=== PATIENT | male | born 1950 | race Caucasian/White ===

== ENCOUNTER 2018-01-02 11:04 | Emergency (ER) | payer MEDICARE ==
[~2018-01-02] VITALS: Ht 182.9 cm; Wt 79.4 kg
[~2018-01-02 11:04] MED LIST: ASPI81CH; CARV25; XARELTO1 EACH
[2018-01-02] MEDS ORDERED: SERT100 PO (11:13)
[2018-01-02] MEDS ORDERED: METF500C PO (11:14)
[2018-01-02] MEDS ORDERED: INSULANPEN (11:14)
[2018-01-02] MEDS ORDERED: GABA300 PO (11:14)
[2018-01-02] MEDS ORDERED: ATOR20 PO (11:14)
[2018-01-02 11:27] LABS: BASOPHILS ABSOLUTE AUTO 0.09 K/mm3 (0.00-0.23); BASOPHILS PERCENT AUTO 1 % (0-2); EOSINOPHILS ABSOLUTE AUTO 0.32 K/mm3 (0.00-0.68); EOSINOPHILS PERCENT AUTO 4 % (0-6); Hematocrit 40.2 % (37.0-53.0); Hemoglobin 13.1 g/dL (13.5-17.5); IMMATURE GRAN ABSOLUTE AUTO 0.03 K/mm3 (0.00-0.10); IMMATURE GRAN PERCENT AUTO 0 % (0-1); LYMPHOCYTES ABSOLUTE AUTO 2.35 K/mm3 (0.84-5.20); LYMPHOCYTES PERCENT AUTO 27 % (21-46); MONOCYTES ABSOLUTE AUTO 0.56 K/mm3 (0.16-1.47); MONOCYTES PERCENT AUTO 6 % (4-13); Mean Corpuscular HGB 30.3 pg (26.0-34.0); Mean Corpuscular HGB Conc 32.6 g/dL (31.5-36.5); Mean Corpuscular Volume 93 fL (80-100); Mean Platelet Volume 10.1 fL (9.1-12.4); NEUTROPHILS ABSOLUTE AUTO 5.47 K/mm3 (1.96-9.15); NEUTROPHILS PERCENT AUTO 62 % (41-73); Platelet Count 213 K/mm3 (150-400); RDW Coefficient Variation 12.5 % (11.7-14.2); RDW Standard Deviation 42.8 fL (35.1-46.3); Red Blood Cell Count 4.33 M/mm3 (4.30-5.90); White Blood Cell Count 8.82 K/mm3 (4.00-11.30)
[2018-01-02 11:48] LABS: Alanine Aminotransfer (ALT/SGP 15 U/L (12-78); Albumin, Blood 2.8 g/dL (3.4-5.0); Albumin/Globulin Ratio 0.8 (0.8-1.8); Alk Phos 153 U/L (50-136); Anion Gap 7 mmol/L (6-16); Aspartate Aminotrans (AST/SGOT 12 U/L (12-37); Bilirubin, Total 0.3 mg/dL (0.1-1.0); Blood Urea Nitrogen 27 mg/dL (8-24); Bun/Creatinine Ratio 20.5 (12.0-20.0); CO2, Blood 29 mmol/L (21-32); Calcium, Blood 8.3 mg/dL (8.5-10.1); Chloride, Blood 109 mmol/L (98-108); Creatinine, Blood 1.32 mg/dL (0.60-1.20); Globulin, Blood 3.6 g/dL (2.2-4.0); Glomerular Filtration Rate 58 (60-); Glucose, Blood 146 mg/dL (70-99); Potassium, Blood 3.8 mmol/L (3.5-5.5); Sodium, Blood 145 mmol/L (136-145); Total Protein, Blood 6.4 g/dL (6.4-8.2); Troponin I <0.015 ng/mL (0.000-0.040)
== END 2018-01-02 13:38 | disposition home or self-care (01) ==
LOC: ER 11:04
PROVIDERS: Emergency Medicine
DX: R55 Syncope and collapse (principal); E11.9 Type 2 diabetes mellitus without complications; I25.2 Old myocardial infarction; Z79.899 Other long term (current) drug therapy; Z79.4 Long term (current) use of insulin; Z87.891 Personal history of nicotine dependence
CPT/HCPCS: 36415; 80053; 84484; 85025; 93005; 93010; 93225; 93226; 99283-25

== ENCOUNTER 2018-07-01 10:40 | Inpatient (IN) | payer MEDICARE ==
[~2018-07-01] VITALS: Ht 182.9 cm; Wt 82.0 kg
[~2018-07-01 10:40] MED LIST changes: +ATOR20 PO; +BASAGLAR K100 UNIT/1 SC; +GABA300 PO; +INSULANPEN; +METF500C PO; +PANT20 PO; +SERT100 PO
[2018-07-01 11:29] LABS: BASOPHILS ABSOLUTE AUTO 0.09 K/mm3 (0.00-0.23); BASOPHILS PERCENT AUTO 1 % (0-2); EOSINOPHILS ABSOLUTE AUTO 0.25 K/mm3 (0.00-0.68); EOSINOPHILS PERCENT AUTO 2 % (0-6); Hematocrit 40.7 % (37.0-53.0); IMMATURE GRAN ABSOLUTE AUTO 0.03 K/mm3 (0.00-0.10); IMMATURE GRAN PERCENT AUTO 0 % (0-1); LYMPHOCYTES ABSOLUTE AUTO 2.12 K/mm3 (0.84-5.20); LYMPHOCYTES PERCENT AUTO 19 % (21-46); MONOCYTES ABSOLUTE AUTO 0.73 K/mm3 (0.16-1.47); MONOCYTES PERCENT AUTO 7 % (4-13); Mean Corpuscular HGB 29.7 pg (26.0-34.0); Mean Corpuscular HGB Conc 31.9 g/dL (31.5-36.5); Mean Corpuscular Volume 93 fL (80-100); Mean Platelet Volume 10.3 fL (9.1-12.4); NEUTROPHILS PERCENT AUTO 71 % (41-73); Platelet Count 388 K/mm3 (150-400); RDW Coefficient Variation 12.8 % (11.7-14.2); RDW Standard Deviation 43.8 fL (35.1-46.3); Red Blood Cell Count 4.37 M/mm3 (4.30-5.90); White Blood Cell Count 10.92 K/mm3 (4.00-11.30)
[2018-07-01 11:41] LABS: Alanine Aminotransfer (ALT/SGP 21 U/L (12-78); Albumin, Blood 2.8 g/dL (3.4-5.0); Albumin/Globulin Ratio 0.6 (0.8-1.8); Alk Phos 260 U/L (50-136); Anion Gap 7 mmol/L (6-16); Aspartate Aminotrans (AST/SGOT 13 U/L (12-37); Bilirubin, Total 0.2 mg/dL (0.1-1.0); Blood Urea Nitrogen 43 mg/dL (8-24); Bun/Creatinine Ratio 38.4 (12.0-20.0); CO2, Blood 27 mmol/L (21-32); Calcium, Blood 8.7 mg/dL (8.5-10.1); Chloride, Blood 97 mmol/L (98-108); Creatinine, Blood 1.12 mg/dL (0.60-1.20); Globulin, Blood 4.8 g/dL (2.2-4.0); Glomerular Filtration Rate >60 (60-); Glucose, Blood 593 mg/dL (70-99); Potassium, Blood 4.7 mmol/L (3.5-5.5); Sodium, Blood 131 mmol/L (136-145); Total Protein, Blood 7.6 g/dL (6.4-8.2)
[2018-07-01 11:46] LABS: Base Excess Venous 1.5 mmol/L; Bicarbonate Venous 24.6 mmol/L (24.0-30.0); PCO2 Venous 49.6 mmHg (38-42); PO2 Venous 38.6 mmHg (38-42); pH Blood Venous 7.35 (7.34-7.37)
[2018-07-01 13:42] LABS: Glucose, Blood 601 mg/dL (70-99)
[2018-07-01 16:30] LABS: Source, Urine Clean Catch
[2018-07-01 16:36] LABS: Appearance, Urine Hazy (Clear); Bilirubin, Urine Neg (Neg); Blood, Urine 4+ (Neg); Color, Urine Yellow (P-Yellow); Glucose Qualitative, Urine 4+ (Neg); Ketones, Urine Neg (Neg); Leukocyte Esterase, Urine 1+ (Neg); Nitrite, Urine Neg (Neg); Protein, Urine 2+ (Neg); Urobilinogen, Urine NORM (Normal)
[2018-07-01 16:47] LABS: Squamous Epithelial Cells Mod /hpf (Few)
[2018-07-01 16:49] LABS: Bacteria Rare /hpf
[2018-07-01 18:57] LABS: International Normalized Ratio 1.07
--- NOTE | 2018-07-02 03:56 | NUR ---
SHIFT SUMMARY PT HAD FAIRLY RESTFUL SHIFT. PT HAD SOME INCREASED PAIN AND PAIN MED WAS ORDERED. PT RESPONDED WELL TO TX. PT PAIN IS LOCATED MOSTLY IN LEFT FOOT WITH SOME IN RIGHT FOOT. PT HAD NO ACUTE ISSUES NOTED. PT IS SLEEPING AND BREATHING EASY.
[2018-07-02 05:00] LABS: BASOPHILS PERCENT AUTO 1 % (0-2); EOSINOPHILS ABSOLUTE AUTO 0.36 K/mm3 (0.00-0.68); EOSINOPHILS PERCENT AUTO 4 % (0-6); Hematocrit 34.6 % (37.0-53.0); Hemoglobin 11.1 g/dL (13.5-17.5); IMMATURE GRAN ABSOLUTE AUTO 0.04 K/mm3 (0.00-0.10); IMMATURE GRAN PERCENT AUTO 0 % (0-1); LYMPHOCYTES ABSOLUTE AUTO 1.88 K/mm3 (0.84-5.20); LYMPHOCYTES PERCENT AUTO 20 % (21-46); MONOCYTES ABSOLUTE AUTO 0.59 K/mm3 (0.16-1.47); MONOCYTES PERCENT AUTO 6 % (4-13); Mean Corpuscular HGB 29.7 pg (26.0-34.0); Mean Corpuscular HGB Conc 32.1 g/dL (31.5-36.5); Mean Corpuscular Volume 93 fL (80-100); Mean Platelet Volume 10.3 fL (9.1-12.4); NEUTROPHILS ABSOLUTE AUTO 6.28 K/mm3 (1.96-9.15); NEUTROPHILS PERCENT AUTO 68 % (41-73); Platelet Count 288 K/mm3 (150-400); RDW Coefficient Variation 12.7 % (11.7-14.2); RDW Standard Deviation 42.9 fL (35.1-46.3); Red Blood Cell Count 3.74 M/mm3 (4.30-5.90); White Blood Cell Count 9.25 K/mm3 (4.00-11.30)
[2018-07-02 05:39] LABS: Anion Gap 6 mmol/L (6-16); Blood Urea Nitrogen 31 mg/dL (8-24); Bun/Creatinine Ratio 28.7 (12.0-20.0); CO2, Blood 25 mmol/L (21-32); Calcium, Blood 8.3 mg/dL (8.5-10.1); Chloride, Blood 108 mmol/L (98-108); Creatinine, Blood 1.08 mg/dL (0.60-1.20); Glomerular Filtration Rate >60 (60-); Glucose, Blood 227 mg/dL (70-99); Potassium, Blood 3.9 mmol/L (3.5-5.5); Sodium, Blood 139 mmol/L (136-145)
--- NOTE | 2018-07-02 19:24 | NUR ---
SHIFT SUMMARY: NO ACUTE CHANGES TO REPORT THIS SHIFT. PT A&O; CALM AND COOPERATIVE WITH CARE. MEDICATED FOR PAIN PER EMAR. PT ON BEDREST R/T LEFT FOOT CELLULITIS; ATTENDS IN PLACE. DR ROBERTS CONSULTED (ORTHO) THROUGH ANSWERING SERVICE. IV ABX CONTINUING. WCTM.
--- NOTE | 2018-07-02 21:49 | NUR ---
DR. ROBERTS ANSWERING SERVICE WAS CALLED FOR CONSULT BY DAY SHIFT RN. ANSWERING SERVICE INFORMED RN THAT DUE TO ISSUE BEING CELLULITIS THAT DR. ROBERTS WON'T ACCEPT. DR. SOLARES NEEDS TO BE INFORMED THAT A PODIATRY CONSULT STILL NEEDS TO BE MADE. IT IS UNKNOWN WHEN PODIATRY WILL BE AVAILABLE.
--- NOTE | 2018-07-03 04:02 | NUR ---
SHIFT SUMMARY PT HAS NOT BEEN CONSULTED BY PODIATRY OR ORTHO. PT HAD UNEVENTFUL SHIFT. PT HAD NO COMPLAINTS OF PAIN OR DISCOMFORT THIS SHIFT. PT HAS SLEPT THROUGHOUT SHIFT. NO ACUTE CHANGES OR ISSUES NOTED. PT IS SLEEPING AND BREATHING EASY. CALL LIGHT IN REACH.
--- NOTE | 2018-07-03 15:51 | NUR ---
SUMMARY PT IS A/O X3-4, GENERALLY PLAEASANT HOWEVER HAS BEEN FATIGUED, SLEEPING MUCH OF DAY. STATE CONTINUING WEAKNESS LEGS & PAIN L FOOT, STATE ABLE TO BR WT WITH FWW HOWEVER HAS DECLINED OOB OR TO CHAIR SO FAR TODAY. THIS AM HE STATED HE WAS CONTINENT OF URINE HOWEVER HAD NOT USED URINAL OR GOT UP TO BR. WHEN ASKED HE STATE INCONTINENCE, STATE INCONTINENCE DURING SLEEP, ATTENDS & BEDDING SOAKED, CHANGED. DR BRIGHT ASSESS L FOOT/TOES WOUND, STATE NO PODIATRY AVAIL 2 THIS TIME, IV ANTIBX WILL CONTINUE. WOUND CARE & DRSG PROVIDED. BLOOD SUGARS LOW 200'S, HE IS ON HIGH S/S. VSS.
[2018-07-03 20:40] LABS: Vancomycin, Trough 14.6 ug/mL (5.0-10.0)
--- NOTE | 2018-07-04 03:11 | NUR ---
SHIFT SUMMARY PT SLEEPING DURING SHIFT REPORT. ADMITTED FOR L FOOT CELLULITIS. PER SHIFT REPORT, NO PODITARY AVAILABLE AT THIS TIME. RECEIVING IV ABX PER EMAR. DRSG PLACED TO L FOOT BY DAY RN, WHICH HAS REMAINED C/D/I. PT WITH HX HTN, PVD, CAD, RI, CVA, STENTS, AND IDDM. CBG'S GREATER THAN 600 UPON ADMIT, BUT CONTINUES TO IMPROVE WITH INSULIN ADJUSTMENTS. SCROTUM BECOMING RED D/T INCONTINENCE. BARRIER CREAM APPLIED WHEN CHANGED. PT SEEMS A&O, BUT HAS BEEN INCONTINENT OF URINE. DENIED PAIN IN FOOT DURING ASSESSMENT. CALLED FOR TYLENOL FOR TIAN THIS AM. CURRENTLY RESTING QUIETLY WITH EYES CLOSED AND TV OFF. CALL LT IN REACH.
--- NOTE | 2018-07-04 15:16 | NUR ---
summary PT IS A/O X4, GENERALLY PLEASANT HOWEVER SOMEWHAT FLAT AFFECT. HE IS ABLE TO AMBULATE WITH FWW TO BR IF HE CHOOSES HOWEVER UNABLE TO CONTROL BLADDER & HAS BEEN INCONT T/O DAY. HAVE OFFERED FOR PT TO SIT UP IN CHAIR HOWEVER HE STATE CAUSES L FOOT DISCOMFORT, DECLINED TODAY. HE STATE BLE NEUROPATHY, PAIN TO L FOOT MINIMAL TODAY LONG HE IS RESTING. HAS NOT NEEDED PRN NORCO. DR BRIGHT IN THIS AM TO ASSESS L FOOT, STATE GOOD PROGRESS. CHANGE IV ANTIBX. WOUND CARE/DRSG CHANGE L FOOT PROVIDED. VSS.
--- NOTE | 2018-07-05 07:23 | NUR ---
a+o but unaware of incontinence, call light in reach, saline locked room air, dry when performed walking rounds with day shift, goal is to go home
[2018-07-05 08:24] LABS: BASOPHILS ABSOLUTE AUTO 0.08 K/mm3 (0.00-0.23); BASOPHILS PERCENT AUTO 1 % (0-2); EOSINOPHILS ABSOLUTE AUTO 0.29 K/mm3 (0.00-0.68); EOSINOPHILS PERCENT AUTO 4 % (0-6); Hematocrit 34.9 % (37.0-53.0); Hemoglobin 11.2 g/dL (13.5-17.5); IMMATURE GRAN ABSOLUTE AUTO 0.02 K/mm3 (0.00-0.10); IMMATURE GRAN PERCENT AUTO 0 % (0-1); LYMPHOCYTES ABSOLUTE AUTO 1.99 K/mm3 (0.84-5.20); LYMPHOCYTES PERCENT AUTO 25 % (21-46); MONOCYTES ABSOLUTE AUTO 0.64 K/mm3 (0.16-1.47); MONOCYTES PERCENT AUTO 8 % (4-13); Mean Corpuscular HGB 30.1 pg (26.0-34.0); Mean Corpuscular HGB Conc 32.1 g/dL (31.5-36.5); Mean Corpuscular Volume 94 fL (80-100); NEUTROPHILS ABSOLUTE AUTO 4.97 K/mm3 (1.96-9.15); NEUTROPHILS PERCENT AUTO 62 % (41-73); Platelet Count 256 K/mm3 (150-400); RDW Coefficient Variation 12.9 % (11.7-14.2); RDW Standard Deviation 44.1 fL (35.1-46.3); Red Blood Cell Count 3.72 M/mm3 (4.30-5.90); White Blood Cell Count 7.99 K/mm3 (4.00-11.30)
[2018-07-05 08:37] LABS: Anion Gap 7 mmol/L (6-16); Blood Urea Nitrogen 30 mg/dL (8-24); Bun/Creatinine Ratio 25.9 (12.0-20.0); CO2, Blood 28 mmol/L (21-32); Calcium, Blood 8.6 mg/dL (8.5-10.1); Chloride, Blood 107 mmol/L (98-108); Creatinine, Blood 1.16 mg/dL (0.60-1.20); Glomerular Filtration Rate >60 (60-); Glucose, Blood 84 mg/dL (70-99); Potassium, Blood 3.8 mmol/L (3.5-5.5); Sodium, Blood 142 mmol/L (136-145)
[2018-07-05 08:40] LABS: Creatinine, Blood 1.16 mg/dL (0.60-1.20); Vancomycin, Trough 15.5 ug/mL (5.0-10.0)
--- NOTE | 2018-07-05 18:45 | NUR ---
SHIFT SUMMARY PT ADMITTED FOR CELLULITIS OF THE LEFT FOOT. I CHANGED THE DRESSING THIS MORNING. DR. CORBIN WAS CONSULTED AND WILL PERFORM A TOE AMPUTATION IN THE MORNING. PT MUST BE NPO AT MIDNIGHT TONIGHT. PT IS PLEASANT, A&O X4. BUT NOT ABLE TO BEAR WEIGHT ON THE LEFT FOOT. PT HAS NOT COMPLAINED OF PAIN. PT IS ACHS BUT HAS NOT REQUIRED COVERAGE
--- NOTE | 2018-07-06 04:14 | NUR ---
*SHIFT SUMMARY* PATIENT IS ALERT AND ORIENTED. PATIENT HAS BEEN IN BED DURING SHIFT. PATIENT IS NON WEIGHT BEARING ON LEFT FOOT. PATIENT HAS BEEN NPO SINCE MIDNIGHT. PATIENT IS SCHEDULED FOR SURGERY THIS AM. THIS RN ASKED WHAT THE SURGERY WAS FOR, PATIENT STATES HE IS HAVING HIS MIDDLE TOE OF HIS LEFT FOOT REMOVED. PATIENT HAD PAIN THROUGHOUT THE NIGHT IN THE LEFT FOOT. MEDICATED ORDERED, SEE EMAR. CHECO NIXON. GAVE TELEPHONE ORDER TO GIVE 25 UNITS OF LANTUS AT 2100 07/05/18 INSTEAD OF 50 UNITS. NEW IV WAS STARTED AT BEGINING OF SHIFT, FOR IV IN THE LEFT FOREARM INFILTRATED. NEW 20G IV IN RIGHT HAND. PATIENT IS NOT ON TELEMETRY. CALL LIGHT WITHIN REACH. PATIENT USES CALL LIGHT APPROPRIATELY. BED LOWERED AND LOCKED.
--- NOTE | 2018-07-06 11:17 | NUR ---
TONYAG 63, SPOKE WITH DR. BRIGHT, RECIEVED ORDERS FOR D5NS IV 75 ML/HR TILL POST OP.
--- NOTE | 2018-07-06 11:44 | NUR ---
History, Chart, Medications and Allergies reviewed before start of procedure.Lungs clear T/O to Auscultation. Patient confirms NPO status and agrees with scheduled surgery. PT CBG AT 63MMHG. PT GIVIEN 1/2 AMP D50 PER PROTOCOL BY MARTY BARNARD. FAMILY AT BEDSIDE. PT BASELINE SPEECH SLURRED FROM STROKE. REPORT TO CLARE BARNARD.
--- NOTE | 2018-07-06 12:03 | NUR ---
ASSUMED CARE OF PATIENT FOR MICHAEL ENGLISH, REPORT RECEIVED. TUNNEL ELASTIC OPERATOR ZIGZAG AT BEDSIDE NOW.
--- NOTE | 2018-07-06 12:59 | NUR ---
07/06/18 1259 [facility] 10CC 0.5% BUPIVICAINE W/EPI [id number] INJECTED TO RT FOOT BY DR CORBIN
--- NOTE | 2018-07-06 13:07 | NUR ---
REPORT TO QUTIA BARNARD
--- NOTE | 2018-07-06 13:09 | NUR ---
RECEIVED REPORT FROM XAVIER BARNARD. WILL ASSUME CARE OF PT. PT IS SLEEPING AT THIS TIME
--- NOTE | 2018-07-06 18:08 | NUR ---
SHIFT SUMMARY. A&OX4, SBA TO BSC OR CHAIR. PT IS PLEASANT AND COOPERATIVE, SLIGHT SLURRED SPEECH. PT WITH L 3RD AMPUTATION THIS AFTERNOON, NO POST OP COMPLICATIONS. DRESSING C/D/I. PT DENIES NEED FOR PAIN MEDICATION. NO N/V, SOB.
--- NOTE | 2018-07-07 04:49 | NUR ---
*SHIFT SUMMARY* PATIENT IS ALERT AND ORIENTED TO SELF AND PLACE. PATIENT USES CALL LIGHT APPROPRIATELY. PATIENT IS INCONTINENT. PATIENT HAS PAIN IN LEFT FOOT. MEDICATED ORDERED, PAIN MANAGEMENT IS NOT CONTROLLED WITH WHATS ORDERED FOR PAIN MEDICATIONS. PATIENT DID NOT GET MUCH SLEEP THROUGHOUT THE NIGHT. WILL DISCUSS WITH DAYSHIFT RN ABOUT MEDICATIONS. PATIENT'S DRESSING ON LEFT FOOT IS C/D/I. BED LOCKED AND IN LOW POSITION WITH CALL LIGHT IN REACH.
--- NOTE | 2018-07-07 16:11 | NUR ---
SHIFT SUMMARY. A&OX3, SBA TO CHAIR WITH FWW. PT WITH INCREASED PAIN FROM POST OP DAY 2, GOOD RELIEF WITH CURRENT ORDERS. PHYSICAL THERAPY EVAL TODAY. PT WITH MILD SOB WITH EXERTION. NO N/V. GOOD PO INTAKE, ALTHOUGH SLEPT THROUGH LUNCH AFTER IV FENTANYL ADMINISTRATION. INCONTINENT OF URINE.
--- NOTE | 2018-07-08 07:45 | NUR ---
SHIFT SUMMARY PT IS A 68-YEAR-OLD MALE, ADMITTED FOR L FOOT CELLULITIS. PT IS A&O X 3. THE PT SLEPT WELL THROUGH MOST OF THE SHIFT, THOUGH HE WOKE FOR MEDICATIONS. WHEN WOKEN, HE DENIED ANY COMPLAINTS OF PAIN, STATING THAT HE FELT "MUCH BETTER THAN I DID THIS MORNING". HE ALSO DENIED ANY NAUSEA OR SOB. PT'S FOOT STILL IN SURGICAL DRESSING. DRESSING IS INTACT WITH NO SIGNS OF BLEED THROUGH. VITAL SIGNS STABLE. NO OTHER ACUTE CHANGES IN PT CONDITION NOTED DURING THE NIGHT.
[2018-07-08] MEDS ORDERED: BAYER CHEWABLE81 MG PO (13:12)
[2018-07-08] MEDS ORDERED: CLOP75 PO (13:15)
[2018-07-08] MEDS ORDERED: PENVK250 PO (13:16)
[2018-07-08] MEDS ORDERED: Bactrim Ds Tab1 EACH PO (13:18)
[2018-07-08] MEDS ORDERED: SACC250C PO (13:27)
[2018-07-08] MEDS ORDERED: Percocet 5-3251 EACH PO (14:04)
--- NOTE | 2018-07-08 14:32 | NUR ---
discharge DR CORBIN IN TO SEE PT, STATE OK FOR DISCHARGE HOME FROM PODIATRY STANDPOINT. DR HEMPHILL IN TO SEE PT, PROVIDE D/C HOME ORDERS. PT DOES NOT HAVE PREFERENCE FOR HOME HEALTH PROVIDER. [facility]. D/C INSTRUCT WITH EMPHASIS ON ESTABLISHING PCP & FOLLOWING UP WITH DR CORBIN PROVIDED. FOOT IS POST-OP SHOE. SCRIPTS FAXED TO [facility]/REQUEST HARD COPY PERCOCET SCRIPT TO PT. IV D/C INTACT. HIS NEFABY HELPS HIM @ HOME, BRING IN CLOTHES. DC INSTRUCT REVIEWED WITH HER. W/C ESCORT FROM [facility] PROVIDEDBY [facility] ACCOMPANIED BY [facility]. PT IS PLEASANT/APPRECIATIVE.
== END 2018-07-08 15:11 | disposition home health service (06) | DRG 256 ==
LOC: ER 10:40 → MEDS 15:09 → ER 17:13 → MEDS 17:13 → ENPENDDIS 07-08 13:29 → MEDS 07-08 15:11
PROVIDERS: Internal Medicine; Physician Assistant; Podiatrist Foot & Ankle Surgery; ADMIT Internal Medicine
PROC: 0Y6U0Z0 Detachment at Left 3rd Toe, Complete, Open Approach (ICD-10-PCS; principal; 2018-07-06 12:00)
DX: E11.52 Type 2 diabetes mellitus with diabetic peripheral angiopathy with gangrene (principal); E87.1 Hypo-osmolality and hyponatremia; I96 Gangrene, not elsewhere classified; N39.0 Urinary tract infection, site not specified; E11.628 Type 2 diabetes mellitus with other skin complications; E11.40 Type 2 diabetes mellitus with diabetic neuropathy, unspecified; E11.65 Type 2 diabetes mellitus with hyperglycemia; N28.9 Disorder of kidney and ureter, unspecified; L03.032 Cellulitis of left toe; I25.10 Atherosclerotic heart disease of native coronary artery without angina pectoris; I10 Essential (primary) hypertension; E78.5 Hyperlipidemia, unspecified; D64.9 Anemia, unspecified; R31.9 Hematuria, unspecified; D50.9 Iron deficiency anemia, unspecified; B95.2 Enterococcus as the cause of diseases classified elsewhere; B96.1 Klebsiella pneumoniae [K. pneumoniae] as the cause of diseases classified elsewhere; B96.89 Other specified bacterial agents as the cause of diseases classified elsewhere; Z96.642 Presence of left artificial hip joint; Z66 Do not resuscitate; Z95.828 Presence of other vascular implants and grafts; Z79.4 Long term (current) use of insulin; Z79.899 Other long term (current) drug therapy; I25.2 Old myocardial infarction; Z86.73 Personal history of transient ischemic attack (TIA), and cerebral infarction without residual deficits; Z87.891 Personal history of nicotine dependence; Z91.14 Patient's other noncompliance with medication regimen; Z95.5 Presence of coronary angioplasty implant and graft
CPT/HCPCS: 36415; 73630; 73700; 80048; 80053; 80202; 81001; 82565; 82607; 82728; 82746; 82803; 82947; 83540; 83550; 83605; 85025; 85610; 85651; 85730; 86140; 87040; 87070; 87077; 87086; 87186; 87205; 88305; 88311; 93005; 93010; 93926; 96365; 96366; 97110; 97162; 97530; 99285-25; J0690; J0696; J1650; J1815; J2250; J2405; J2765; J3010; J3370; J7050; J7120

== ENCOUNTER 2018-11-20 19:44 | Inpatient (IN) | payer MEDICARE ==
[~2018-11-20] VITALS: Ht 182.9 cm; Wt 81.5 kg
[~2018-11-20 19:44] MED LIST changes: +BAYER CHEWABLE81 MG PO; +Bactrim Ds Tab1 EACH PO; +CLOP75 PO; +PENVK250 PO; +Percocet 5-3251 EACH PO; +SACC250C PO
[2018-11-20 20:34] LABS: BASOPHILS ABSOLUTE AUTO 0.07 K/mm3 (0.00-0.23); BASOPHILS PERCENT AUTO 0 % (0-2); EOSINOPHILS ABSOLUTE AUTO 0.04 K/mm3 (0.00-0.68); EOSINOPHILS PERCENT AUTO 0 % (0-6); Hematocrit 42.6 % (37.0-53.0); Hemoglobin 13.9 g/dL (13.5-17.5); IMMATURE GRAN PERCENT AUTO 1 % (0-1); LYMPHOCYTES PERCENT AUTO 5 % (21-46); MONOCYTES ABSOLUTE AUTO 1.06 K/mm3 (0.16-1.47); MONOCYTES PERCENT AUTO 6 % (4-13); Mean Corpuscular HGB 29.5 pg (26.0-34.0); Mean Corpuscular HGB Conc 32.6 g/dL (31.5-36.5); Mean Corpuscular Volume 90 fL (80-100); Mean Platelet Volume 10.4 fL (9.1-12.4); NEUTROPHILS ABSOLUTE AUTO 15.15 K/mm3 (1.96-9.15); NEUTROPHILS PERCENT AUTO 88 % (41-73); Platelet Count 215 K/mm3 (150-400); RDW Coefficient Variation 12.6 % (11.7-14.2); RDW Standard Deviation 41.5 fL (35.1-46.3); Red Blood Cell Count 4.71 M/mm3 (4.30-5.90); White Blood Cell Count 17.32 K/mm3 (4.00-11.30)
[2018-11-20 20:59] LABS: Alanine Aminotransfer (ALT/SGP 20 U/L (12-78); Albumin, Blood 2.7 g/dL (3.4-5.0); Albumin/Globulin Ratio 0.7 (0.8-1.8); Alk Phos 155 U/L (50-136); Anion Gap 10 mmol/L (6-16); Aspartate Aminotrans (AST/SGOT 17 U/L (12-37); Bilirubin, Total 0.5 mg/dL (0.1-1.0); Blood Urea Nitrogen 32 mg/dL (8-24); Bun/Creatinine Ratio 26.7 (12.0-20.0); CO2, Blood 20 mmol/L (21-32); Calcium, Blood 8.2 mg/dL (8.5-10.1); Chloride, Blood 109 mmol/L (98-108); Globulin, Blood 3.7 g/dL (2.2-4.0); Glomerular Filtration Rate >60 (60-); Glucose, Blood 269 mg/dL (70-99); Magnesium, Blood 1.4 mg/dL (1.6-2.4); Potassium, Blood 4.5 mmol/L (3.5-5.5); Sodium, Blood 139 mmol/L (136-145); Total Protein, Blood 6.4 g/dL (6.4-8.2); Troponin I <0.015 ng/mL (0.000-0.040)
[2018-11-20 21:02] LABS: Thyroid Stimulating Hormone 0.839 uIU/mL (0.360-4.800)
[2018-11-20 23:11] LABS: Source, Urine Clean Catch
[2018-11-20 23:16] LABS: Bilirubin, Urine Neg (Neg); Blood, Urine 5+ (Neg); Glucose Qualitative, Urine 3+ (Neg); Ketones, Urine 2+ (Neg); Leukocyte Esterase, Urine 3+ (Neg); Nitrite, Urine Pos (Neg); Protein, Urine 4+ (Neg); Specific Gravity, Urine 1.015 (1.003-1.022); Urobilinogen, Urine NORM (Normal)
[2018-11-20 23:18] LABS: Appearance, Urine Cloudy (Clear); Color, Urine Yellow (P-Yellow)
[2018-11-20 23:26] LABS: Amorphous Light ({null, 0-Heavy}); Bacteria Mod /hpf; Red Blood Cells, Urine TNTC /hpf (0-2); Squamous Epithelial Cells Not Seen /hpf (Few); White Blood Cells, Urine TNTC /hpf (0-5)
[2018-11-21 05:44] LABS: BASOPHILS ABSOLUTE AUTO 0.05 K/mm3 (0.00-0.23); BASOPHILS PERCENT AUTO 0 % (0-2); EOSINOPHILS ABSOLUTE AUTO 0.02 K/mm3 (0.00-0.68); EOSINOPHILS PERCENT AUTO 0 % (0-6); Hematocrit 41.3 % (37.0-53.0); Hemoglobin 13.4 g/dL (13.5-17.5); IMMATURE GRAN PERCENT AUTO 1 % (0-1); LYMPHOCYTES PERCENT AUTO 9 % (21-46); MONOCYTES ABSOLUTE AUTO 1.12 K/mm3 (0.16-1.47); MONOCYTES PERCENT AUTO 7 % (4-13); Mean Corpuscular HGB 29.6 pg (26.0-34.0); Mean Corpuscular HGB Conc 32.4 g/dL (31.5-36.5); Mean Corpuscular Volume 91 fL (80-100); Mean Platelet Volume 10.5 fL (9.1-12.4); NEUTROPHILS ABSOLUTE AUTO 12.47 K/mm3 (1.96-9.15); NEUTROPHILS PERCENT AUTO 83 % (41-73); Platelet Count 202 K/mm3 (150-400); RDW Coefficient Variation 12.9 % (11.7-14.2); RDW Standard Deviation 43.3 fL (35.1-46.3); Red Blood Cell Count 4.52 M/mm3 (4.30-5.90); White Blood Cell Count 15.06 K/mm3 (4.00-11.30)
--- NOTE | 2018-11-21 06:44 | NUR ---
SHIFT SUMMARY PATIENT IS ALERT AND CONFUSED. CAME TO ROOM VIA STRETCHER. ON ROOM AIR. PATIENT SEEMS MILDLY CONFUSED. UNSURE OF MEDICATIONS, AND HEALTH HISTORY. PATIENT STATES HE LIVES AT HOME WITH HIS NEICE AND NEPHEW. HE STATES HE FEELS VERY WEAK. PT IS INCONTINENT. HAS A PRESSURE ULCER ON LEFT HIP. NEED TO GET MEDICATION LIST FROM PATIENTS PHARMACY TODAY, HE [facility] BUT IS UNSURE WHICH ONE HERE. WILL PASS ALONG TO DAYSHIFT RN. VITALS STABLE.
[2018-11-21 08:38] LABS: Albumin, Blood 2.7 g/dL (3.4-5.0); Albumin/Globulin Ratio 0.7 (0.8-1.8); Bilirubin, Total 0.5 mg/dL (0.1-1.0); Bun/Creatinine Ratio 25.9 (12.0-20.0); Calcium, Blood 8.4 mg/dL (8.5-10.1); Creatinine, Blood 1.43 mg/dL (0.60-1.20); Globulin, Blood 3.7 g/dL (2.2-4.0); Potassium, Blood 4.3 mmol/L (3.5-5.5); Total Protein, Blood 6.4 g/dL (6.4-8.2)
--- NOTE | 2018-11-21 16:50 | NUR ---
HE IS SLEEPING LIGHTLY. NO COMPLAINTS TODAY. HIGH SS STARTED THIS AFTERNOON. RECEIVED FAXES FROM [facility] AND [facility]. WILL DO MED REC.
[2018-11-21] MEDS ORDERED: LIRA0.6P SC (16:55)
[2018-11-21] MEDS ORDERED: Glucophage Xr750 MG PO (16:57)
[2018-11-21] MEDS ORDERED: SERT100 PO (17:00)
[2018-11-21] MEDS ORDERED: Aspirin EC81 MG PO (17:02)
[2018-11-21] MEDS ORDERED: METO25 PO (17:03)
[2018-11-21] MEDS ORDERED: DOCU100 PO (17:17)
--- NOTE | 2018-11-21 18:58 | NUR ---
NO CHANGES. HE SAT UP AND AMBULATED IN ROOM TODAY. NO TREATABLE FEVER TODAY. SS INSULIN STARTED. MED REC DONE. NOTIFIED. IVF'S SLOWED TO 100MLS/HR EARLY THIS AFTERNOON.
[2018-11-22 05:12] LABS: BASOPHILS ABSOLUTE AUTO 0.06 K/mm3 (0.00-0.23); BASOPHILS PERCENT AUTO 1 % (0-2); EOSINOPHILS ABSOLUTE AUTO 0.21 K/mm3 (0.00-0.68); EOSINOPHILS PERCENT AUTO 2 % (0-6); Hematocrit 37.1 % (37.0-53.0); Hemoglobin 11.9 g/dL (13.5-17.5); IMMATURE GRAN ABSOLUTE AUTO 0.07 K/mm3 (0.00-0.10); IMMATURE GRAN PERCENT AUTO 1 % (0-1); LYMPHOCYTES ABSOLUTE AUTO 1.83 K/mm3 (0.84-5.20); LYMPHOCYTES PERCENT AUTO 15 % (21-46); MONOCYTES ABSOLUTE AUTO 0.69 K/mm3 (0.16-1.47); MONOCYTES PERCENT AUTO 6 % (4-13); Mean Corpuscular HGB Conc 32.1 g/dL (31.5-36.5); Mean Corpuscular Volume 90 fL (80-100); Mean Platelet Volume 10.6 fL (9.1-12.4); NEUTROPHILS ABSOLUTE AUTO 9.38 K/mm3 (1.96-9.15); NEUTROPHILS PERCENT AUTO 77 % (41-73); Platelet Count 168 K/mm3 (150-400); RDW Standard Deviation 42.7 fL (35.1-46.3); Red Blood Cell Count 4.11 M/mm3 (4.30-5.90); White Blood Cell Count 12.24 K/mm3 (4.00-11.30)
[2018-11-22 05:32] LABS: Albumin, Blood 2.4 g/dL (3.4-5.0); Anion Gap 7 mmol/L (6-16); Blood Urea Nitrogen 25 mg/dL (8-24); Bun/Creatinine Ratio 21.7 (12.0-20.0); CO2, Blood 25 mmol/L (21-32); Chloride, Blood 109 mmol/L (98-108); Creatinine, Blood 1.15 mg/dL (0.60-1.20); Glomerular Filtration Rate >60 (60-); Glucose, Blood 145 mg/dL (70-99); Phosphorus, Blood 1.9 mg/dL (2.5-4.9); Potassium, Blood 3.7 mmol/L (3.5-5.5); Sodium, Blood 141 mmol/L (136-145)
--- NOTE | 2018-11-22 07:34 | NUR ---
SHIFT SUMMARY PATIENT IS ALERT AND CONFUSED AT TIMES. PATIENT IS INCONTINENT. DENIES PAIN OR SOB. PATIENT USES CALL LIGHT AT TIMES. NO NEW CHANGES THROUGHOUT THE NIGHT. VITALS STABLE.
[2018-11-23 05:02] LABS: BASOPHILS ABSOLUTE AUTO 0.06 K/mm3 (0.00-0.23); BASOPHILS PERCENT AUTO 1 % (0-2); EOSINOPHILS ABSOLUTE AUTO 0.26 K/mm3 (0.00-0.68); EOSINOPHILS PERCENT AUTO 3 % (0-6); IMMATURE GRAN ABSOLUTE AUTO 0.02 K/mm3 (0.00-0.10); IMMATURE GRAN PERCENT AUTO 0 % (0-1); LYMPHOCYTES ABSOLUTE AUTO 1.52 K/mm3 (0.84-5.20); LYMPHOCYTES PERCENT AUTO 18 % (21-46); MONOCYTES ABSOLUTE AUTO 0.55 K/mm3 (0.16-1.47); MONOCYTES PERCENT AUTO 7 % (4-13); Mean Corpuscular HGB 29.3 pg (26.0-34.0); Mean Corpuscular HGB Conc 32.4 g/dL (31.5-36.5); Mean Corpuscular Volume 90 fL (80-100); Mean Platelet Volume 10.4 fL (9.1-12.4); NEUTROPHILS ABSOLUTE AUTO 5.91 K/mm3 (1.96-9.15); NEUTROPHILS PERCENT AUTO 71 % (41-73); Platelet Count 168 K/mm3 (150-400); RDW Coefficient Variation 12.4 % (11.7-14.2); RDW Standard Deviation 41.4 fL (35.1-46.3); White Blood Cell Count 8.32 K/mm3 (4.00-11.30)
[2018-11-23 05:31] LABS: Albumin, Blood 2.4 g/dL (3.4-5.0); Anion Gap 7 mmol/L (6-16); Blood Urea Nitrogen 27 mg/dL (8-24); Bun/Creatinine Ratio 23.5 (12.0-20.0); CO2, Blood 26 mmol/L (21-32); Calcium, Blood 8.4 mg/dL (8.5-10.1); Chloride, Blood 107 mmol/L (98-108); Creatinine, Blood 1.15 mg/dL (0.60-1.20); Glomerular Filtration Rate >60 (60-); Glucose, Blood 151 mg/dL (70-99); Phosphorus, Blood 2.3 mg/dL (2.5-4.9); Potassium, Blood 3.6 mmol/L (3.5-5.5); Sodium, Blood 140 mmol/L (136-145)
--- NOTE | 2018-11-23 08:05 | NUR ---
SHIFT SUMMARY: 68 Y/O MALE RESTED COMFORTABLY ALL EVENING WITH NO PAIN OR NAUSEA VOICED. PTS LEFT HIP MEPLEX DRESSING DRY AND INTACT. PT ALERT AND ORIENTED X 2, ABLE TO FOLLOW SIMPLE VERBAL COMMANDS. PTS BED ALARM APPLIED, BED LOW POSITION, CALL LIGHT AT SIDE. PT VOICED THAT HE LIVES IN MOBILE HOME WITH HIS NIECE AND NEPHEW.
[2018-11-23] MEDS ORDERED: Florastor250 MG PO (10:27)
[2018-11-23] MEDS ORDERED: LEVOFLOXACIN750 MG PO (10:27)
[2018-11-23] MEDS ORDERED: CLOP75 PO (10:27)
--- NOTE | 2018-11-23 13:31 | NUR ---
PATIENT DISCHARGE: PATIENT DISCHARGED TO HOME c HOME HEALTH THIS SHIFT. MEDICATION RECONCILIATION COMPLETED; MED LIST FAXED TO [facility]. DISCHARGE EDUCATION COMPLETED WITH PATIENT AND FAMILY. PATIENT TRANSPORTED TO EXIT BY [facility] STAFF WITH WHEELCHAIR AT 1325. PATIENT DEPARTED [facility] VIA PRIVATE AUTO.
== END 2018-11-23 13:23 | disposition home health service (06) | DRG 872 ==
LOC: ER 19:44 → MEDS 19:45 → ER 11-21 01:00 → MEDS 11-21 01:00 → ENPENDDIS 11-23 09:45 → MEDS 11-23 13:23
PROVIDERS: Emergency Medicine; Family Medicine; ADMIT Hospitalist
DX: A41.9 Sepsis, unspecified organism (principal); N39.0 Urinary tract infection, site not specified; L89.222 Pressure ulcer of left hip, stage 2; E11.65 Type 2 diabetes mellitus with hyperglycemia; I25.10 Atherosclerotic heart disease of native coronary artery without angina pectoris; Z86.73 Personal history of transient ischemic attack (TIA), and cerebral infarction without residual deficits; I10 Essential (primary) hypertension; E78.5 Hyperlipidemia, unspecified; B96.1 Klebsiella pneumoniae [K. pneumoniae] as the cause of diseases classified elsewhere; E11.42 Type 2 diabetes mellitus with diabetic polyneuropathy; E11.59 Type 2 diabetes mellitus with other circulatory complications; E83.39 Other disorders of phosphorus metabolism; E83.42 Hypomagnesemia; Z66 Do not resuscitate; Z79.4 Long term (current) use of insulin; Z95.5 Presence of coronary angioplasty implant and graft; Z87.891 Personal history of nicotine dependence; D64.9 Anemia, unspecified
CPT/HCPCS: 36415; 71046; 80053; 80069; 81001; 82947; 83605; 83735; 84443; 84484; 85025; 87077; 87086; 87186; 93005; 93010; 96361; 96365; 96366; 97162; 97530; 99285-25; J0696; J1650; J1815; J7030

== ENCOUNTER → 2018-12-27 | Outpatient (CLI) | payer MEDICARE ==
[~2018-12-27] MED LIST changes: +Aspirin EC81 MG PO; +BACL10 PO; +DOCU100 PO; +DULO60 PO; +Florastor250 MG PO; +Glucophage Xr750 MG PO; +LEVE500 PO; +LEVOFLOXACIN750 MG PO; +LIRA0.6P SC; +METO25 PO; +MONT10T PO; +TRAZ100 PO
[2018-12-27 15:57] LABS: Bilirubin, Urine Neg (Neg); Blood, Urine Neg (Neg); Glucose Qualitative, Urine 4+ (Neg); Ketones, Urine Neg (Neg); Leukocyte Esterase, Urine 1+ (Neg); Nitrite, Urine Neg (Neg); Protein, Urine 2+ (Neg); Specific Gravity, Urine 1.015 (1.003-1.022); Urobilinogen, Urine NORM (Normal)
[2018-12-27 16:03] LABS: Appearance, Urine Clear (Clear); Color, Urine Yellow (P-Yellow)
[2018-12-27 16:13] LABS: Bacteria Few /hpf; Squamous Epithelial Cells Few /hpf (Few); Yeast/Fungi Urine Few /hpf
== END | disposition home or self-care (01) ==
LOC: LAB 15:06 → LAB SHORT 15:06
PROVIDERS: Family Medicine
DX: E11.65 Type 2 diabetes mellitus with hyperglycemia (principal); E83.42 Hypomagnesemia; N39.0 Urinary tract infection, site not specified
CPT/HCPCS: 81001; 87077; 87086; 87186

== ENCOUNTER 2019-01-02 12:35 | Emergency (ER) | payer MEDICARE ==
[~2019-01-02] VITALS: Ht 182.9 cm; Wt 81.7 kg
[~2019-01-02 12:35] MED LIST changes: -BACL10 PO; -DULO60 PO; -LEVE500 PO; -MONT10T PO; -TRAZ100 PO
[2019-01-02 13:38] LABS: BASOPHILS ABSOLUTE AUTO 0.05 K/mm3 (0.00-0.23); BASOPHILS PERCENT AUTO 1 % (0-2); EOSINOPHILS ABSOLUTE AUTO 0.16 K/mm3 (0.00-0.68); EOSINOPHILS PERCENT AUTO 3 % (0-6); Hematocrit 43.2 % (37.0-53.0); Hemoglobin 13.8 g/dL (13.5-17.5); IMMATURE GRAN ABSOLUTE AUTO 0.02 K/mm3 (0.00-0.10); IMMATURE GRAN PERCENT AUTO 0 % (0-1); LYMPHOCYTES ABSOLUTE AUTO 1.49 K/mm3 (0.84-5.20); LYMPHOCYTES PERCENT AUTO 24 % (21-46); MONOCYTES ABSOLUTE AUTO 0.62 K/mm3 (0.16-1.47); MONOCYTES PERCENT AUTO 10 % (4-13); Mean Corpuscular HGB 29.9 pg (26.0-34.0); Mean Corpuscular HGB Conc 31.9 g/dL (31.5-36.5); Mean Corpuscular Volume 94 fL (80-100); Mean Platelet Volume 10.6 fL (9.1-12.4); NEUTROPHILS PERCENT AUTO 63 % (41-73); Platelet Count 178 K/mm3 (150-400); RDW Coefficient Variation 12.9 % (11.7-14.2); RDW Standard Deviation 43.9 fL (35.1-46.3); Red Blood Cell Count 4.62 M/mm3 (4.30-5.90); White Blood Cell Count 6.24 K/mm3 (4.00-11.30)
[2019-01-02 13:52] LABS: Bun/Creatinine Ratio 25.7 (12.0-20.0); Calcium, Blood 8.8 mg/dL (8.5-10.1); Creatinine, Blood 1.44 mg/dL (0.60-1.20); Potassium, Blood 4.7 mmol/L (3.5-5.5)
[2019-01-02] MEDS ORDERED: MONT10T PO (14:41)
[2019-01-02] MEDS ORDERED: LEVE500 PO (14:41)
[2019-01-02] MEDS ORDERED: DULO60 PO (14:42)
[2019-01-02] MEDS ORDERED: TRAZ100 PO (14:42)
[2019-01-02] MEDS ORDERED: BACL10 PO (14:43)
[2019-01-02 15:03] LABS: Glucose, Blood 515 mg/dL (70-99)
--- NOTE | 2019-01-02 20:37 | NUR ---
Initial Visit: ED Palliative Care Consult for Goals of Care. Spoke with bedside nurse Lai and she reports Pt and family would benefit from palliative care visit. Lai reports Pt's nephew is not agreeable with Pt not being admitted to hospital. Visited with Pt and nephew. Pt denies any discomfort at this time. Listened as nephew expresses concerns that Pt is not being admitted. He reports Pt blood sugars have been running high. Validated concerns and suggested that family calls PCP first thing in the morning to schedule an appointment for tomorrow. Nephew is agreeable. Suggested the idea of having in home caregivers and nephew reports this idea would be decided by his Samuel. Noticed a napkin with palliative care nurse Sofía written on napkin. Nephew reports a report has been established between Pt's niece Samuel and Pt. Nephew is agreeable for palliative care nurse Sofía to F/U with phone call tomorrow. Pt and family report no other concerns at this time. Palliative Care will remain available.
--- NOTE | 2019-01-03 14:34 | NUR ---
folloow up call to family for care planning left message.
== END 2019-01-02 21:28 | disposition home or self-care (01) ==
LOC: ER 12:35
PROVIDERS: Emergency Medicine
DX: E11.65 Type 2 diabetes mellitus with hyperglycemia (principal); J02.9 Acute pharyngitis, unspecified; E86.0 Dehydration; Z79.899 Other long term (current) drug therapy; Z79.4 Long term (current) use of insulin; Z79.82 Long term (current) use of aspirin; Z86.73 Personal history of transient ischemic attack (TIA), and cerebral infarction without residual deficits; I10 Essential (primary) hypertension; E78.5 Hyperlipidemia, unspecified; Z87.891 Personal history of nicotine dependence
CPT/HCPCS: 36415; 80048; 82947; 85025; 93005; 93010; 96360; 99283-25; J1815; J7030

== ENCOUNTER 2019-12-20 16:25 | Inpatient (IN) | payer MEDICARE ==
[~2019-12-20] VITALS: Ht 182.9 cm; Wt 77.3 kg
[~2019-12-20 16:25] MED LIST changes: +BACL10 PO; +DULO60 PO; +LEVE500 PO; +MONT10T PO; +TRAZ100 PO
[2019-12-20 17:54] LABS: BASOPHILS ABSOLUTE AUTO 0.08 K/mm3 (0.00-0.23); BASOPHILS PERCENT AUTO 1 % (0-2); EOSINOPHILS PERCENT AUTO 2 % (0-6); Hematocrit 39.2 % (37.0-53.0); Hemoglobin 12.4 g/dL (13.5-17.5); IMMATURE GRAN ABSOLUTE AUTO 0.06 K/mm3 (0.00-0.10); IMMATURE GRAN PERCENT AUTO 0 % (0-1); LYMPHOCYTES ABSOLUTE AUTO 1.04 K/mm3 (0.84-5.20); LYMPHOCYTES PERCENT AUTO 7 % (21-46); MONOCYTES ABSOLUTE AUTO 0.82 K/mm3 (0.16-1.47); MONOCYTES PERCENT AUTO 5 % (4-13); Mean Corpuscular HGB 29.7 pg (26.0-34.0); Mean Corpuscular HGB Conc 31.6 g/dL (31.5-36.5); Mean Corpuscular Volume 94 fL (80-100); Mean Platelet Volume 10.3 fL (9.1-12.4); NEUTROPHILS ABSOLUTE AUTO 13.13 K/mm3 (1.96-9.15); NEUTROPHILS PERCENT AUTO 85 % (41-73); Platelet Count 324 K/mm3 (150-400); RDW Coefficient Variation 13.2 % (11.7-14.2); RDW Standard Deviation 45.3 fL (35.1-46.3); Red Blood Cell Count 4.18 M/mm3 (4.30-5.90); White Blood Cell Count 15.43 K/mm3 (4.00-11.30)
[2019-12-20 18:10] LABS: Alanine Aminotransfer (ALT/SGP 14 U/L (12-78); Albumin, Blood 2.5 g/dL (3.4-5.0); Albumin/Globulin Ratio 0.5 (0.8-1.8); Alk Phos 173 U/L (50-136); Anion Gap 8 mmol/L (6-16); Aspartate Aminotrans (AST/SGOT 11 U/L (12-37); Bilirubin, Total 0.3 mg/dL (0.1-1.0); Blood Urea Nitrogen 65 mg/dL (8-24); Bun/Creatinine Ratio 38.9 (12.0-20.0); CO2, Blood 25 mmol/L (21-32); Calcium, Blood 8.9 mg/dL (8.5-10.1); Chloride, Blood 103 mmol/L (98-108); Creatinine, Blood 1.67 mg/dL (0.60-1.20); Globulin, Blood 5.4 g/dL (2.2-4.0); Glomerular Filtration Rate 44 (60-); Glucose, Blood 351 mg/dL (70-99); Potassium, Blood 5.1 mmol/L (3.5-5.5); Sodium, Blood 136 mmol/L (136-145); Total Protein, Blood 7.9 g/dL (6.4-8.2); Troponin I <0.015 ng/mL (0.000-0.040)
[2019-12-20 20:18] LABS: Source, Urine Catheter
[2019-12-20 20:42] LABS: Appearance, Urine Turbid (Clear); Bilirubin, Urine Neg (Neg); Blood, Urine 4+ (Neg); Color, Urine Yellow (P-Yellow); Glucose Qualitative, Urine 4+ (Neg); Ketones, Urine Neg (Neg); Leukocyte Esterase, Urine 3+ (Neg); Nitrite, Urine Neg (Neg); Protein, Urine 2+ (Neg); Urobilinogen, Urine NORM (Normal)
[2019-12-20 20:49] LABS: White Blood Cells, Urine TNTC /hpf (0-5)
[2019-12-20 20:50] LABS: Amorphous Mod (0-Heavy); Bacteria Mod /hpf; Squamous Epithelial Cells Not Seen /hpf (Few)
[2019-12-20] MEDS ORDERED: METO25ER PO (21:24)
[2019-12-20] MEDS ORDERED: METFORMIN HCL500 M3 PO (21:25)
[2019-12-20] MEDS ORDERED: ATORVASTATIN CA20 MG PO (21:26)
[2019-12-20] MEDS ORDERED: BASAGLAR K100 UNIT/3 SC ×2 (21:31)
--- NOTE | 2019-12-20 23:40 | NUR ---
ASSUMED CARE RECEIVED REPORT FROM ED RN. PT TRANSPORTED TO MEDICAL FLOOR VIA GURNEY, TRANSFERRED TO HOSPITAL BED WITH ASSISTANCE OF 4. NO S/S ACUTE DISTRESS NOTED, RESPS EVEN AND UNLABORED. PT REPOSITIONED AND SETTLED INTO ROOM. ORIENTED TO UNIT AND USE OF CALL LIGHT, REMINDED PT TO CALL WITH NEEDS. CALL LIGHT, POSSESSIONS IN REACH, BED IN LOWEST POSITION WITH ALARMS ON. WILL CONTINUE TO MONITOR.
[2019-12-21 05:17] LABS: BASOPHILS ABSOLUTE AUTO 0.08 K/mm3 (0.00-0.23); BASOPHILS PERCENT AUTO 1 % (0-2); EOSINOPHILS ABSOLUTE AUTO 0.41 K/mm3 (0.00-0.68); EOSINOPHILS PERCENT AUTO 3 % (0-6); Hematocrit 33.3 % (37.0-53.0); Hemoglobin 10.3 g/dL (13.5-17.5); IMMATURE GRAN ABSOLUTE AUTO 0.04 K/mm3 (0.00-0.10); IMMATURE GRAN PERCENT AUTO 0 % (0-1); LYMPHOCYTES ABSOLUTE AUTO 1.72 K/mm3 (0.84-5.20); LYMPHOCYTES PERCENT AUTO 14 % (21-46); MONOCYTES ABSOLUTE AUTO 0.79 K/mm3 (0.16-1.47); MONOCYTES PERCENT AUTO 6 % (4-13); Mean Corpuscular HGB 28.9 pg (26.0-34.0); Mean Corpuscular HGB Conc 30.9 g/dL (31.5-36.5); Mean Corpuscular Volume 94 fL (80-100); NEUTROPHILS ABSOLUTE AUTO 9.39 K/mm3 (1.96-9.15); NEUTROPHILS PERCENT AUTO 76 % (41-73); Platelet Count 269 K/mm3 (150-400); RDW Coefficient Variation 13.2 % (11.7-14.2); RDW Standard Deviation 45.5 fL (35.1-46.3); Red Blood Cell Count 3.56 M/mm3 (4.30-5.90); White Blood Cell Count 12.43 K/mm3 (4.00-11.30)
[2019-12-21 05:31] LABS: Bun/Creatinine Ratio 38.3 (12.0-20.0); Calcium, Blood 8.1 mg/dL (8.5-10.1); Creatinine, Blood 1.49 mg/dL (0.60-1.20); Potassium, Blood 4.5 mmol/L (3.5-5.5)
--- NOTE | 2019-12-21 05:59 | NUR ---
SHIFT SUMMARY PT HAS HAD NO ACUTE EVENTS SINCE ADMISSION. SLEPT FOR MUCH OF THE NIGHT AFTER SETTLING INTO ROOM. VS STABLE. NO C/O DYSURIA. PT WAS INCONTINENT OF URINE, UNAWARE OF FACT THAT HE HAD VOIDED. PT REPOSITIONED AND KEPT COMFORTABLE T/O NIGHT. DENIES NEEDS AT THIS TIME. ROOM SERVICE FOOD SERVER SPOKE TO PT'S NEPHEW TO OBTAIN INFORMATION FOR PT ADMISSION. CALL LIGHT AND POSSESSIONS IN REACH, BED IN LOWEST POSITION WITH ALARMS ON. WILL CONTINUE TO MONITOR UNTIL DAY RN ASSUMES CARE.
--- NOTE | 2019-12-21 18:26 | NUR ---
PT HAS BEEN STABLE AND ORIENTED THIS SHIFT. PT WORKED WITH THERAPY TO STAD BUT IS OTHERWISE BEDBOUND AND REQUIRES TURNING. PT HAS EXCORIATION TO BUTTOCKS AND KATHRIN AREA. ATTENDS ON FOR INCONTINENCE. CREAM USED TO BUTTOCKS AND KATHRIN AREA NEEDED. UA SENT FOR MICRO. CONT ROCEPHIN AND IV FLUIDS ORDERED. PT EATING WELL. HAD SEVERAL SMEARS OF BM TODAY. BLOOD SUGARS COVERED ORDERED. SCD'S TO BLE. LEAD ARCHITECT CONSULT PLACED AND PALLIATIVE CARE WORKING ON CLARIFYING POLST. AM LABS ORDERED TO REPEAT IN AM.
[2019-12-22 05:32] LABS: BASOPHILS ABSOLUTE AUTO 0.09 K/mm3 (0.00-0.23); BASOPHILS PERCENT AUTO 1 % (0-2); EOSINOPHILS ABSOLUTE AUTO 0.54 K/mm3 (0.00-0.68); EOSINOPHILS PERCENT AUTO 5 % (0-6); Hemoglobin 10.4 g/dL (13.5-17.5); IMMATURE GRAN ABSOLUTE AUTO 0.03 K/mm3 (0.00-0.10); IMMATURE GRAN PERCENT AUTO 0 % (0-1); LYMPHOCYTES ABSOLUTE AUTO 1.71 K/mm3 (0.84-5.20); LYMPHOCYTES PERCENT AUTO 15 % (21-46); MONOCYTES ABSOLUTE AUTO 0.64 K/mm3 (0.16-1.47); MONOCYTES PERCENT AUTO 6 % (4-13); Mean Corpuscular HGB Conc 30.6 g/dL (31.5-36.5); Mean Corpuscular Volume 95 fL (80-100); NEUTROPHILS ABSOLUTE AUTO 8.09 K/mm3 (1.96-9.15); NEUTROPHILS PERCENT AUTO 73 % (41-73); Platelet Count 269 K/mm3 (150-400); RDW Coefficient Variation 12.9 % (11.7-14.2); RDW Standard Deviation 45.4 fL (35.1-46.3); Red Blood Cell Count 3.59 M/mm3 (4.30-5.90)
[2019-12-22 06:07] LABS: Albumin/Globulin Ratio 0.5 (0.8-1.8); Bilirubin, Total 0.2 mg/dL (0.1-1.0); Calcium, Blood 8.1 mg/dL (8.5-10.1); Creatinine, Blood 1.31 mg/dL (0.60-1.20); Potassium, Blood 4.2 mmol/L (3.5-5.5)
--- NOTE | 2019-12-22 06:15 | NUR ---
SUMMARY NO ISSUES NOTED. PT HAS BEEN CHANGED NEEDED. PT HAS SLEPT T/O SHIFT W/OUT COMPLAINT. PT CURRENTLY SLEEPING AND BREATHING EASY. CALL LIGHT IN REACH.
[2019-12-22 06:21] LABS: Percent Saturation 19.6 % (20.0-50.0)
[2019-12-22 06:41] LABS: Thyroid Stimulating Hormone 0.906 uIU/mL (0.360-4.800)
--- NOTE | 2019-12-22 17:05 | NUR ---
SHIFT SUMMARY PT HAS HAD NO COMPLAINTS THIS SHIFT. PT WORKED WITH PHYSICAL THERAPY TODAY AND SAT IN CHAIR FOR FOR A FEW MINUTES BEFORE COMPLAINING OF BACK PAIN. STAFF HAD TO USE CEILING LIFT TO GET PT BACK INTO BED. PT UNABLE TO STAND-KNEES KEPT BUCKELING. NO COMPLAINTS OF PAIN. PT HAS HAD A GOOD APPETITE. N0 ACUTE CHANGES THIS SHIFT. WILL CONTINUE TO MONITOR AND REPORT TO ONCOMING RN. CALL LIGHT IN REACH.
--- NOTE | 2019-12-23 04:07 | NUR ---
SHIFT SUMMARY: VSS. AFEB. AAOX3. 02 SATS 94% ON RA. DENIES SOB. RESPS SHALLOW, REGULAR, NON-LABORED. LSCTA. INCONTINENT- CHAFED SCROTUM AND EXCORIATED BUTTOCKS. DRESSING CHANGED TO ABSCESS OVER R SCAPULA. ABSCESS LARGE, RAISED, PAINFUL TO TOUCH. SMALL AMT OF PURULENT DRAINAGE ON DRESSING. WILL COMMUNICATE THIS TO DAY SHIFT. NO ACUTE CHANGES OVERNIGHT. WILL CONT TO MONITOR.
[2019-12-23 06:02] LABS: BASOPHILS ABSOLUTE AUTO 0.09 K/mm3 (0.00-0.23); BASOPHILS PERCENT AUTO 1 % (0-2); EOSINOPHILS ABSOLUTE AUTO 0.58 K/mm3 (0.00-0.68); EOSINOPHILS PERCENT AUTO 6 % (0-6); Hematocrit 31.5 % (37.0-53.0); Hemoglobin 9.6 g/dL (13.5-17.5); IMMATURE GRAN ABSOLUTE AUTO 0.05 K/mm3 (0.00-0.10); IMMATURE GRAN PERCENT AUTO 1 % (0-1); LYMPHOCYTES ABSOLUTE AUTO 1.85 K/mm3 (0.84-5.20); LYMPHOCYTES PERCENT AUTO 18 % (21-46); MONOCYTES ABSOLUTE AUTO 0.53 K/mm3 (0.16-1.47); MONOCYTES PERCENT AUTO 5 % (4-13); Mean Corpuscular HGB 28.6 pg (26.0-34.0); Mean Corpuscular HGB Conc 30.5 g/dL (31.5-36.5); Mean Corpuscular Volume 94 fL (80-100); Mean Platelet Volume 10.1 fL (9.1-12.4); NEUTROPHILS ABSOLUTE AUTO 7.04 K/mm3 (1.96-9.15); NEUTROPHILS PERCENT AUTO 70 % (41-73); Platelet Count 274 K/mm3 (150-400); RDW Coefficient Variation 12.8 % (11.7-14.2); RDW Standard Deviation 44.2 fL (35.1-46.3); Red Blood Cell Count 3.36 M/mm3 (4.30-5.90); White Blood Cell Count 10.14 K/mm3 (4.00-11.30)
[2019-12-23 06:20] LABS: Anion Gap 7 mmol/L (6-16); Blood Urea Nitrogen 28 mg/dL (8-24); Bun/Creatinine Ratio 25.5 (12.0-20.0); CO2, Blood 24 mmol/L (21-32); Calcium, Blood 7.8 mg/dL (8.5-10.1); Chloride, Blood 110 mmol/L (98-108); Glomerular Filtration Rate >60 (60-); Glucose, Blood 180 mg/dL (70-99); Sodium, Blood 141 mmol/L (136-145)
--- NOTE | 2019-12-23 09:56 | NUR ---
Pt resting in bed upon arrival. Pt is A&OX4 and denies pain, dyspnea, nausea, and anxiety at this time. Engaged in therapeutic discussion regarding Advanced Care Planning. Pt reports living with his niece and at baseline is able to ambulate with walker, dress self, and bathe self. Pt does require assistance with getting in and out of shower. Educated Pt on his chronic health issues and the importance of routine conversations with PCP regarding health. Instructed on the importance of developing multiple plans with PCP as disease process takes its coarse. Discussed completing new POLST to reflect his current wishes and code status. Pt expresses interest. Educated on life sustaining measures, risk factors, and implications. Educated on each section to complete. Assisted Pt in completing new POLST. Pt's wishes on POLST are DNR and Limited Treatment. Pt signs POLST. Pt reports no other concerns at this time. Spoke with Bedside RN Mine and discussed case. Pt's new POLST is hanging on his whiteboard and Mine will have hospitalist sign when she makes her rounds. Palliative Care will obtain copy for medical records upon MD signature.
[2019-12-23 15:15] LABS: Alanine Aminotransfer (ALT/SGP 15 U/L (12-78); Albumin, Blood 1.8 g/dL (3.4-5.0); Albumin/Globulin Ratio 0.4 (0.8-1.8); Alk Phos 133 U/L (50-136); Anion Gap 4 mmol/L (6-16); Aspartate Aminotrans (AST/SGOT 16 U/L (12-37); Bilirubin, Total 0.1 mg/dL (0.1-1.0); Blood Urea Nitrogen 26 mg/dL (8-24); Bun/Creatinine Ratio 23.4 (12.0-20.0); CO2, Blood 25 mmol/L (21-32); Calcium, Blood 7.8 mg/dL (8.5-10.1); Chloride, Blood 108 mmol/L (98-108); Creatinine, Blood 1.11 mg/dL (0.60-1.20); Glomerular Filtration Rate >60 (60-); Glucose, Blood 300 mg/dL (70-99); Potassium, Blood 4.9 mmol/L (3.5-5.5); Sodium, Blood 137 mmol/L (136-145); Total Protein, Blood 5.8 g/dL (6.4-8.2)
--- NOTE | 2019-12-23 16:40 | NUR ---
SHIFT SUMMARY PT WAS A TWO PERSON MAX ASSIST WITH GAIT BELT TO GET UP IN THE CHAIR THIS AFTERNOON. PT TOLERATED WELL AND ATE LUNCH IN CHAIR. LIFT WAS USED TO GET PT BACK IN BED. PT HAS BEEN SLEEPING ON AND OFF. DR. MIRAMONTES AWARE OF REDNESS TO RIGHT SCAPULA-ORDERED K-PAD WITH ALREADY ORDERED ANTIBIOTICS. PT HAS HAD NO COMPLAINTS OF PAIN. SKIN LOOKING BETTER ON BUTTOCKS AND SCROTUM. PT HAS HAD A GOOD APPETITE THIS SHIFT. NO ACUTE CHANGES THIS SHIFT. WILL CONTINUE TO MONITOR AND REPORT TO ONCOMING RN.
--- NOTE | 2019-12-24 04:20 | NUR ---
SHIFT SUMMARY: VSS. AFEB. AAOX3. COMMUNICATES NEEDS. INCONT. CONDOM CATH IN PLACE- DRAINING CLEAR YELLOW URINE. EXCORIATED BUTTOCKS AND SCROTUM IMPROVING. DRESSING TO ABSCESS ON R SCAPULA CDI- HEATING PAD IN PLACE. AREA CONT TO BE TENDER TO TOUCH AND APPEARS RAISED. PT DENIES PAIN IN GENERAL. NO ACUTE CHANGES TONIGHT. WILL CONT TO MONITOR.
[2019-12-24 05:19] LABS: BASOPHILS PERCENT AUTO 1 % (0-2); EOSINOPHILS ABSOLUTE AUTO 0.58 K/mm3 (0.00-0.68); EOSINOPHILS PERCENT AUTO 6 % (0-6); Hematocrit 31.8 % (37.0-53.0); Hemoglobin 9.8 g/dL (13.5-17.5); IMMATURE GRAN ABSOLUTE AUTO 0.06 K/mm3 (0.00-0.10); IMMATURE GRAN PERCENT AUTO 1 % (0-1); LYMPHOCYTES ABSOLUTE AUTO 2.12 K/mm3 (0.84-5.20); LYMPHOCYTES PERCENT AUTO 23 % (21-46); MONOCYTES ABSOLUTE AUTO 0.58 K/mm3 (0.16-1.47); MONOCYTES PERCENT AUTO 6 % (4-13); Mean Corpuscular HGB 28.6 pg (26.0-34.0); Mean Corpuscular HGB Conc 30.8 g/dL (31.5-36.5); Mean Corpuscular Volume 93 fL (80-100); Mean Platelet Volume 9.7 fL (9.1-12.4); NEUTROPHILS ABSOLUTE AUTO 5.87 K/mm3 (1.96-9.15); NEUTROPHILS PERCENT AUTO 63 % (41-73); Platelet Count 296 K/mm3 (150-400); RDW Coefficient Variation 12.7 % (11.7-14.2); RDW Standard Deviation 43.1 fL (35.1-46.3); Red Blood Cell Count 3.43 M/mm3 (4.30-5.90); White Blood Cell Count 9.31 K/mm3 (4.00-11.30)
--- NOTE | 2019-12-24 13:24 | NUR ---
discharged:reviewed: stay, medications, instructions, and need for going reqularly to see a medical professional. removed iv wnl, called report to Ashley díaz
== END 2019-12-24 13:05 | DRG 690 ==
LOC: ER 16:25 → MEDS 23:22
PROVIDERS: Emergency Medicine; Internal Medicine; Nurse Practitioner Acute Care; ADMIT Internal Medicine
DX: N39.0 Urinary tract infection, site not specified (principal); N17.9 Acute kidney failure, unspecified; E44.0 Moderate protein-calorie malnutrition; Z79.4 Long term (current) use of insulin; Z79.82 Long term (current) use of aspirin; I25.10 Atherosclerotic heart disease of native coronary artery without angina pectoris; E11.51 Type 2 diabetes mellitus with diabetic peripheral angiopathy without gangrene; Z86.73 Personal history of transient ischemic attack (TIA), and cerebral infarction without residual deficits; E78.5 Hyperlipidemia, unspecified; Z96.642 Presence of left artificial hip joint; Z87.891 Personal history of nicotine dependence; I25.2 Old myocardial infarction; R32 Unspecified urinary incontinence; Z66 Do not resuscitate
CPT/HCPCS: 36415; 51701; 51798; 71046; 80048; 80053; 81001; 82607; 82728; 82746; 82947; 83540; 83550; 83605; 83690; 83880; 84443; 84484; 85025; 86592; 87040; 87086; 93005; 93010; 96361-59; 96365-59; 96375-59; 97162; 97530; 99285-25; A9270-GY; J0696; J2405; J7030

== ENCOUNTER 2020-08-05 19:36 | Inpatient (IN) | payer MEDICARE ==
[~2020-08-05] VITALS: Ht 182.9 cm; Wt 81.0 kg
[~2020-08-05 19:36] MED LIST changes: -Aspirin EC81 MG PO; +BASAGLAR K100 UNIT/3 SC; +METFORMIN HCL500 M3 PO; +METO25ER PO
[2020-08-05 20:26] LABS: BASOPHILS ABSOLUTE AUTO 0.04 K/mm3 (0.00-0.23); BASOPHILS PERCENT AUTO 0 % (0-2); EOSINOPHILS PERCENT AUTO 0 % (0-6); Hematocrit 42.9 % (37.0-53.0); Hemoglobin 13.7 g/dL (13.5-17.5); IMMATURE GRAN ABSOLUTE AUTO 0.03 K/mm3 (0.00-0.10); IMMATURE GRAN PERCENT AUTO 0 % (0-1); LYMPHOCYTES ABSOLUTE AUTO 0.76 K/mm3 (0.84-5.20); LYMPHOCYTES PERCENT AUTO 6 % (21-46); MONOCYTES ABSOLUTE AUTO 1.09 K/mm3 (0.16-1.47); MONOCYTES PERCENT AUTO 9 % (4-13); Mean Corpuscular HGB 29.8 pg (26.0-34.0); Mean Corpuscular HGB Conc 31.9 g/dL (31.5-36.5); Mean Corpuscular Volume 94 fL (80-100); NEUTROPHILS PERCENT AUTO 85 % (41-73); Platelet Count 212 K/mm3 (150-400); RDW Coefficient Variation 12.9 % (11.7-14.2); RDW Standard Deviation 44.7 fL (35.1-46.3); Red Blood Cell Count 4.59 M/mm3 (4.30-5.90); White Blood Cell Count 12.32 K/mm3 (4.00-11.30)
[2020-08-05 20:53] LABS: Bun/Creatinine Ratio 29.2 (12.0-20.0); Creatinine, Blood 2.19 mg/dL (0.60-1.20); Potassium, Blood 6.2 mmol/L (3.5-5.5)
[2020-08-05 21:09] LABS: Base Excess Venous -1.6 mmol/L; Bicarbonate Venous 22.2 mmol/L (24.0-30.0); PO2 Venous 35.5 mmHg (38-42); pH Blood Venous 7.33 (7.34-7.37)
[2020-08-05 21:16] LABS: Source, Urine Clean Catch
[2020-08-05 21:19] LABS: Appearance, Urine Cloudy (Clear); Bilirubin, Urine Neg (Neg); Blood, Urine 5+ (Neg); Color, Urine Amber (P-Yellow); Glucose Qualitative, Urine 4+ (Neg); Ketones, Urine Neg (Neg); Leukocyte Esterase, Urine 3+ (Neg); Nitrite, Urine Pos (Neg); Protein, Urine 3+ (Neg); Urobilinogen, Urine NORM (Normal)
[2020-08-05 21:28] LABS: White Blood Cells, Urine TNTC /hpf (0-5)
[2020-08-05 21:29] LABS: Bacteria Many /hpf; Squamous Epithelial Cells Not Seen /hpf (Few); Triple Phosphate Crystals Few /hpf
[2020-08-05 21:42] LABS: Creatine Kinase MB 3.4 ng/mL (0.0-3.6); Creatine Kinase MB Index 0.6 (0.0-4.0)
[2020-08-06 01:36] LABS: Bun/Creatinine Ratio 28.9 (12.0-20.0); Calcium, Blood 9.1 mg/dL (8.5-10.1); Creatinine, Blood 2.11 mg/dL (0.60-1.20); Potassium, Blood 4.6 mmol/L (3.5-5.5)
--- NOTE | 2020-08-06 01:41 | NUR ---
0030 PT ARRIVED TO ROOM FROM ER VIA GURNEY IN STABLE CONDITION. PT REPORTS SOB WITH EXERTION, ON 2L NC O2 AT 98%. PT HAS ABRASIONS TO R LE, L BACK, L BUTTOCK. BRUISES TO L SHOULDER AND L SIDE. TELE ST AT 110. BS WAS DONE IN ER, LAST ONE WAS 421. NO OTHER APPARENT SIGNS OF DISTRESS. PT DENIES NEED FOR ANYTHING ELSE AT THIS TIME. CALL LIGHT IS IN REACH. 0140 BS FROM LAB JUST DRAWN WAS 401.
--- NOTE | 2020-08-06 02:38 | NUR ---
PT LYING IN BED, AWAKE, WATCHING TV. DENIES NEED FOR ANYTHING AT THIS TIME. NO APPARENT SIGNS OF DISTRESS. CALL LIGHT IS IN REACH.
--- NOTE | 2020-08-06 04:41 | NUR ---
ASSISTED ROAD DESIGN DRAFTSPERSON IN CHANGING AND BOOSTING PT. GOT PT A WARM BLANKET. PT DENIES NEED FOR ANYTHING ELSE RIGHT NOW. NO OTHER APPARENT SIGNS OF DISTRESS. CALL LIGHT IS IN REACH.
--- NOTE | 2020-08-06 04:47 | NUR ---
PT IS AAO X 4, ON 2L O2 AT 98%, REPORTS SOB WITH EXERTION. PT HAS ABRASIONS ON R LE, L BACK/HIP/BUTTOCK. BRUISES ON L SHOULDER, L SIDE. TELE LAST BS WAS 401 AT ABOUT 0100, WILL CHECK AGAIN WITH AM LABS.
[2020-08-06 04:48] LABS: BASOPHILS ABSOLUTE AUTO 0.05 K/mm3 (0.00-0.23); BASOPHILS PERCENT AUTO 1 % (0-2); EOSINOPHILS ABSOLUTE AUTO 0.01 K/mm3 (0.00-0.68); EOSINOPHILS PERCENT AUTO 0 % (0-6); Hemoglobin 12.7 g/dL (13.5-17.5); IMMATURE GRAN ABSOLUTE AUTO 0.02 K/mm3 (0.00-0.10); IMMATURE GRAN PERCENT AUTO 0 % (0-1); LYMPHOCYTES ABSOLUTE AUTO 1.32 K/mm3 (0.84-5.20); LYMPHOCYTES PERCENT AUTO 14 % (21-46); MONOCYTES PERCENT AUTO 12 % (4-13); Mean Corpuscular HGB 29.3 pg (26.0-34.0); Mean Corpuscular Volume 95 fL (80-100); Mean Platelet Volume 10.9 fL (9.1-12.4); NEUTROPHILS ABSOLUTE AUTO 6.64 K/mm3 (1.96-9.15); NEUTROPHILS PERCENT AUTO 73 % (41-73); Platelet Count 184 K/mm3 (150-400); RDW Coefficient Variation 12.8 % (11.7-14.2); RDW Standard Deviation 44.7 fL (35.1-46.3); Red Blood Cell Count 4.33 M/mm3 (4.30-5.90); White Blood Cell Count 9.14 K/mm3 (4.00-11.30)
[2020-08-06 05:08] LABS: Albumin, Blood 2.7 g/dL (3.4-5.0); Albumin/Globulin Ratio 0.6 (0.8-1.8); Bilirubin, Total 0.5 mg/dL (0.1-1.0); Bun/Creatinine Ratio 31.7 (12.0-20.0); Calcium, Blood 8.9 mg/dL (8.5-10.1); Creatinine, Blood 1.99 mg/dL (0.60-1.20); Globulin, Blood 4.2 g/dL (2.2-4.0); Potassium, Blood 5.1 mmol/L (3.5-5.5); Total Protein, Blood 6.9 g/dL (6.4-8.2)
--- NOTE | 2020-08-06 06:24 | NUR ---
PT LYING IN BED, EYES CLOSED, APPEARS TO BE RESTING. WAKES EASILY TO VERBAL STIMULI. NO APPARENT SIGNS OF DISTRESS. CALL LIGHT IS IN REACH. PLACED O2 NC BACK IN PT'S NOSE. NO OTHER CHANGES THIS SHIFT.
--- NOTE | 2020-08-06 12:28 | NUR ---
Echocardiogram performed by Cherise Rob under my supervision.
[2020-08-06 16:11] LABS: Source, Urine Catheter
[2020-08-06 16:47] LABS: Bilirubin, Urine Neg (Neg); Blood, Urine 5+ (Neg); Glucose Qualitative, Urine 4+ (Neg); Ketones, Urine Neg (Neg); Leukocyte Esterase, Urine 3+ (Neg); Nitrite, Urine Neg (Neg); Protein, Urine 3+ (Neg); Urobilinogen, Urine NORM (Normal)
[2020-08-06 16:54] LABS: Appearance, Urine Cloudy (Clear); Color, Urine Yellow (P-Yellow)
[2020-08-06 16:55] LABS: White Blood Cells, Urine TNTC /hpf (0-5)
[2020-08-06 16:56] LABS: Bacteria Many /hpf; Red Blood Cells, Urine 25-50 /hpf (0-2); Squamous Epithelial Cells Not Seen /hpf (Few)
--- NOTE | 2020-08-06 18:20 | NUR ---
SHIFT SUMMARY PT HAS BEEN SLEEPING A LOT OF THE SHIFT. PT IS WEAK AND UNABLE TO STAND WITH 2 ASSIST/GAIT BELT. PT INCONTINENT OF STOOL. INDWELLING CATHETER PLACED THIS AFTERNOON FOR RETENTION/OBSTRUCTION. PT TOLRATED WELL. PT'S URINE WAS IGNACIO, CLOUDY BUT HAS TURNED RED THIS EVENING. WILL MONITOR. PT'S BLOOD SUGAR HAS BEEN ELEVATED BUT IS DECREASING WITH INSULIN. PT HAS A GOOD APPETITE. NO ACUTE CHANGES THIS SHIFT. WILL CONTINUE TO MONITOR AND REPORT TO ONCOMING RN. CALL LIGHT IN REACH.
--- NOTE | 2020-08-06 19:15 | NUR ---
ASSUMED CARE. MANAGER BEAUTY REPORTS VIEW SCORE OF 5. TEMP 100.2, RESP 32, HR 124, BP NORM. ANGELINA IS RESTING IN BED, AOX3, TACHYPENIC, LUNG SOUNDS CLEAR. TELE REPORTS HR SINUS TACH AT 115, DENIES PALPITATIONS OR CHEST PAIN. STATES HE DOES NOT FEEL GOOD. CATHETER IS RED WITH SMALL BLOOD CLOTS T/O. CHECKED CATH NO TUGGING OR PULLING, DENIES ANY DISCOMFORT. ATTENDS DRY, INCONTIENT OF STOOL. VERY WARM TO THE TOUCH, TURNED DOWN HEAT, AND PUT A FAN ON HIM. DENIES ANY PAIN, NO SOB. NO TYLENOL ORDERED, WILL CALL MD AND INFORM OF SITUATION. CALLS APPROPRIATLY.
--- NOTE | 2020-08-06 20:06 | NUR ---
SPOKE TO TRAN MAJANO. INFORMED OF SITUATION. LACTIC ACID ORDERED STAT, BOLUS OF 1000ML NS ORDERED. STARTED RUNNING IT. WILL RECHECK VITALS AROUND 2200 TO SEE IF HE STILL HAS FEVER.
--- NOTE | 2020-08-06 20:51 | NUR ---
ODALIS CRUZ'S, PLACED ON ZOSYN. ANTIBOTIC STARTED, TRAN SPOUTING INSTALLER IN ROOM TO SEE THE PATIENT. IF STILL HAS FEVER WILL REPEAT BLOOD CULTURES AROUND 0 SHE SAID.
--- NOTE | 2020-08-06 23:00 | NUR ---
ANGELINA IS STILL RUNNING A FEVER. TRAN STAMP REDEMPTION CLERK WAS NOTIFIED. ORDERED BLOOD CULTURES, TYLENOL, AND MAINTANCE FLUIDS. CATHETER IS LOOKING BETTER. CHANGED ATTENDS. SMALL BROWN SOFT STOOL NOTED. STATES HE FEELS A LITTLE BETTER. TYLENOL WAS GIVEN AND FEVER IS DOWN TO 99. WILL CONTINUE TO MONITOR.
--- NOTE | 2020-08-07 05:25 | NUR ---
SHIFT SUMMARY: START OF SHIFT PATIENT WAS TACHYCARDIC IN 120'S, RESP WERE 32, TEMP 100.6 AND CLIMBING. BLOODY URINE WITH SMALL BLOOD CLOT. TRAN DIETETICS TEACHER WAS NOTIFIED. 1 LITER BOLUS GIVEN, STAT LACTIC 1.5. ANTIBOTIC WAS CHANGED TO ZOSYN Q 6 HRS, FIRST DOSE GIVEN AROUND 2029. REPEAT VITALS SHOWED DECREASE RESP TO 24, HR DOWN TO 106, AND TEMP STILL RUNNING 100.4. TRAN DIETETICS TEACHER CALLED BACK. BLOOD CULTURES DRAWN, TYLENOL GIVEN, MAINTANCE FLUIDS STARTED AT 75ML/HR. 1 LARGE BM NOTED. THIS AM LABS IMPROVED, AFEBRILE, STILL RUNNING TACHY ON HR. REST OF VS NORMAL. STILL VERY WEAK, NEEDS PT/OT. ENCOURAGED HYDRATION. URINE COLOR ALSO IMPROVING. NO OTHER CHANGES TO NOTE, CALL LIGHT IS IN REACH.
[2020-08-07 05:56] LABS: Bun/Creatinine Ratio 27.4 (12.0-20.0); Creatinine, Blood 1.68 mg/dL (0.60-1.20)
--- NOTE | 2020-08-07 18:43 | NUR ---
SHIFT SUMMARY PT WORKED WITH OCCUPATIONAL AND PHYSICAL THERAPY THIS SHIFT. PT UP TO CHAIR FOR MEALS WITH 1 ASSIST, FWW/GAIT BELT. DE [place] TORRE PATENT AND DRAINING PINK-RED URINE WITH CLOTS AT TIMES. IVF INFUSING WITHOUT DIFFICULTY. PT HAS A GOOD APPETITE. NO ACUTE CHANGES THIS SHIFT. CALL LIGHT IN REACH. WILL CONTINUE TO MONITOR AND REPORT TO ONCOMING RN.
--- NOTE | 2020-08-07 19:40 | NUR ---
ASSUMED CARE. ANGELINA IS LOOKING ALOT BETTER TODAY. HE IS MORE ALERT, PERKY AND TALKING MORE. HE HAS GOOD COLOR TO HIS CHEEKS STATES HE IS FEELING BETTER WELL. VS ARE GOOD,. NO FEVER. CATHETER IS STILL SHOWING SOME RED URINE, APPARENTLY IT STARTED AFTER HE GOT UP FROM THE CHAIR. NO PAIN OR DISCOMFORT. LUNG SOUNDS DIMINISHED IN BASES. NO NEEDS TO NOTE. CALL LIGHT IS IN REACH.
[2020-08-08 05:02] LABS: Bun/Creatinine Ratio 21.3 (12.0-20.0); Creatinine, Blood 1.36 mg/dL (0.60-1.20); Potassium, Blood 3.5 mmol/L (3.5-5.5)
--- NOTE | 2020-08-08 05:51 | NUR ---
SHIFT SUMMARY: ANGELINA OVERALL IS DOING BETTER THEN PREVIOUS NIGHT. VS HAVE REMAINED WNL, NO PAIN NOTED. DE [place] CATHETER STILL PUTTING OUT RED URINE WITH FEWER CLOTS. IVF CONTINUE TO INFUSE. HE IS MORE ALERT AND INTERACTIVE WITH STAFF. HAS BEEN QUITE IN HIS ROOM WITH LITTLE NEEDS NOTED. CALL LIGHT HAS REMAINED IN REACH AND USED APPROPRIATLY.
[2020-08-08] MEDS ORDERED: LEVFLO500 PO (13:59)
[2020-08-08] MEDS ORDERED: TAMS.4ER PO (14:00)
--- NOTE | 2020-08-08 16:53 | NUR ---
DISCHARGE NOTE PATIENT DISCHARGED TO HOME. PATIENT ALERT AND ORIENTED THROUGHOUT THIS SHIFT. PATIENT 1 ASSIST IN THE ROOM. PATIENT DISCHARGED WITH [place] CATHETER. UROLOGY APPOINTMENT MADE BY PATIENT'S NIECE PRIOR TO DISCHARGE. PATIENT'S NIECE IN THE ROOM FOR DISCHARGE AND MEDICATION INSTRUCTIONS, NO QUESTIONS AT THIS TIME. IV REMOVED PRIOR TO DISCHARGE. PATIENT TO VEHICLE BY WHEELCHAIR BY STAFF REGISTERED NURSE.
== END 2020-08-08 16:54 | disposition home or self-care (01) | DRG 871 ==
LOC: ER 19:36 → MEDS 23:04 → ER 08-06 00:20 → MEDS 08-06 00:20 → ENPENDDIS 08-08 09:41 → MEDS 08-08 16:54
PROVIDERS: Internal Medicine; Student in an Organized Health Care Education/Training Program; ADMIT Internal Medicine
DX: A40.8 Other streptococcal sepsis (principal); J96.01 Acute respiratory failure with hypoxia; N12 Tubulo-interstitial nephritis, not specified as acute or chronic; N17.9 Acute kidney failure, unspecified; R65.20 Severe sepsis without septic shock; Z66 Do not resuscitate; W18.30XA Fall on same level, unspecified, initial encounter; Y93.9 Activity, unspecified; Y92.9 Unspecified place or not applicable; Z79.4 Long term (current) use of insulin; E11.42 Type 2 diabetes mellitus with diabetic polyneuropathy; I25.10 Atherosclerotic heart disease of native coronary artery without angina pectoris; Z86.73 Personal history of transient ischemic attack (TIA), and cerebral infarction without residual deficits; Z96.642 Presence of left artificial hip joint; I10 Essential (primary) hypertension; Z87.891 Personal history of nicotine dependence; Z79.82 Long term (current) use of aspirin; Z89.422 Acquired absence of other left toe(s); E11.65 Type 2 diabetes mellitus with hyperglycemia; E87.5 Hyperkalemia; I25.2 Old myocardial infarction; E86.0 Dehydration; N32.0 Bladder-neck obstruction; A41.4 Sepsis due to anaerobes
CPT/HCPCS: 36415; 71045; 76770; 80048; 80053; 81001; 82550; 82553; 82803; 82947; 83605; 83880; 85025; 87040; 87077; 87086; 87147; 87186; 93005; 93010; 93306; 96361; 96365; 96367; 96375; 97116; 97162; 97165; 97530; 97535; 99285-25; A9270; J0610; J0696; J1644; J1815; J2543; J7030; J7120

== ENCOUNTER 2020-08-26 09:07 | Observation (INO) | payer MEDICARE ==
[~2020-08-26] VITALS: Ht 182.9 cm; Wt 79.4 kg
[~2020-08-26 09:07] MED LIST changes: +LEVFLO500 PO; +TAMS.4ER PO
[2020-08-26 09:49] LABS: BASOPHILS ABSOLUTE AUTO 0.11 K/mm3 (0.00-0.23); BASOPHILS PERCENT AUTO 1 % (0-2); EOSINOPHILS PERCENT AUTO 3 % (0-6); Hematocrit 41.9 % (37.0-53.0); Hemoglobin 13.2 g/dL (13.5-17.5); IMMATURE GRAN ABSOLUTE AUTO 0.03 K/mm3 (0.00-0.10); IMMATURE GRAN PERCENT AUTO 0 % (0-1); LYMPHOCYTES ABSOLUTE AUTO 2.24 K/mm3 (0.84-5.20); LYMPHOCYTES PERCENT AUTO 20 % (21-46); MONOCYTES PERCENT AUTO 5 % (4-13); Mean Corpuscular HGB Conc 31.5 g/dL (31.5-36.5); Mean Corpuscular Volume 95 fL (80-100); Mean Platelet Volume 10.2 fL (9.1-12.4); NEUTROPHILS ABSOLUTE AUTO 7.81 K/mm3 (1.96-9.15); NEUTROPHILS PERCENT AUTO 71 % (41-73); Platelet Count 290 K/mm3 (150-400); RDW Coefficient Variation 12.7 % (11.7-14.2); RDW Standard Deviation 44.7 fL (35.1-46.3); White Blood Cell Count 10.99 K/mm3 (4.00-11.30)
[2020-08-26 10:11] LABS: Alanine Aminotransfer (ALT/SGP 14 U/L (12-78); Albumin, Blood 2.8 g/dL (3.4-5.0); Albumin/Globulin Ratio 0.7 (0.8-1.8); Alk Phos 150 U/L (50-136); Anion Gap 6 mmol/L (6-16); Aspartate Aminotrans (AST/SGOT 17 U/L (12-37); Bilirubin, Total 0.2 mg/dL (0.1-1.0); Blood Urea Nitrogen 37 mg/dL (8-24); Bun/Creatinine Ratio 29.1 (12.0-20.0); CO2, Blood 27 mmol/L (21-32); Chloride, Blood 109 mmol/L (98-108); Creatinine, Blood 1.27 mg/dL (0.60-1.20); Globulin, Blood 3.9 g/dL (2.2-4.0); Glomerular Filtration Rate 60 (60-); Glucose, Blood 149 mg/dL (70-99); Potassium, Blood 4.3 mmol/L (3.5-5.5); Sodium, Blood 142 mmol/L (136-145); Total Protein, Blood 6.7 g/dL (6.4-8.2); Troponin I <0.015 ng/mL (0.000-0.040)
[2020-08-26 10:58] LABS: Source, Urine Catheter
[2020-08-26 11:03] LABS: Bilirubin, Urine Neg (Neg); Blood, Urine 1+ (Neg); Glucose Qualitative, Urine Neg (Neg); Ketones, Urine Neg (Neg); Leukocyte Esterase, Urine 2+ (Neg); Nitrite, Urine Neg (Neg); Protein, Urine 2+ (Neg); Urobilinogen, Urine NORM (Normal)
[2020-08-26 11:12] LABS: Appearance, Urine Clear (Clear); Color, Urine Yellow (P-Yellow)
[2020-08-26 11:16] LABS: Bacteria Mod /hpf; Squamous Epithelial Cells Rare /hpf (Few)
[2020-08-26] MEDS ORDERED: CEFP200 PO (12:21)
[2020-08-27 05:19] LABS: BASOPHILS PERCENT AUTO 1 % (0-2); EOSINOPHILS ABSOLUTE AUTO 0.33 K/mm3 (0.00-0.68); EOSINOPHILS PERCENT AUTO 5 % (0-6); Hematocrit 37.9 % (37.0-53.0); IMMATURE GRAN ABSOLUTE AUTO 0.01 K/mm3 (0.00-0.10); IMMATURE GRAN PERCENT AUTO 0 % (0-1); LYMPHOCYTES ABSOLUTE AUTO 2.12 K/mm3 (0.84-5.20); LYMPHOCYTES PERCENT AUTO 29 % (21-46); MONOCYTES ABSOLUTE AUTO 0.56 K/mm3 (0.16-1.47); MONOCYTES PERCENT AUTO 8 % (4-13); Mean Corpuscular HGB 29.6 pg (26.0-34.0); Mean Corpuscular HGB Conc 31.7 g/dL (31.5-36.5); Mean Corpuscular Volume 94 fL (80-100); Mean Platelet Volume 10.2 fL (9.1-12.4); NEUTROPHILS ABSOLUTE AUTO 4.19 K/mm3 (1.96-9.15); NEUTROPHILS PERCENT AUTO 57 % (41-73); Platelet Count 240 K/mm3 (150-400); RDW Coefficient Variation 12.6 % (11.7-14.2); RDW Standard Deviation 43.9 fL (35.1-46.3); Red Blood Cell Count 4.05 M/mm3 (4.30-5.90); White Blood Cell Count 7.31 K/mm3 (4.00-11.30)
[2020-08-27 05:23] LABS: Calcium, Blood 8.5 mg/dL (8.5-10.1); Creatinine, Blood 1.32 mg/dL (0.60-1.20); Magnesium, Blood 2.1 mg/dL (1.6-2.4); Potassium, Blood 4.2 mmol/L (3.5-5.5)
--- NOTE | 2020-08-27 06:30 | NUR ---
SHIFT SUMMARY PT IS A 70 Y/O MALE, ADMITTED FOR BRADYCARDIA. HE IS A&O X 3, MILDLY FORGETFUL AT TIMES. 2PA, INCONTINENT. NO C/O PAIN, NAUSEA OR SOB. VITAL SIGNS STABLE. TELE SHOWED NSR C FDB & PACS IN THE 70S. NO ACUTE CHANGES IN PT CONDITION NOTED. WILL CONTINUE TO MONITOR AND TREAT PER EMAR UNTIL HAND OFF TO DAY SHIFT RN.
--- NOTE | 2020-08-27 16:53 | NUR ---
DISCHARGE NOTE PT IS AOX4. PT DRESSED SELF IN SHIRT AND DEPARTMENTAL SHIPPING CLERK ASSISTED PT WITH PANTS. THIS RN REVIEWED PT DC INSTRUCTIONS AND MEDICATIONS WITH PT WHO VERBALIZED AN UNDERSTANDING. THIS RN ATTEMPTED TO MAKE FOLLOW-UP APPOINTMENT FOR PT, BUT DR. CAAL'S OFFICE STATED THEY DID NOT HAVE PT'S INFORMATION DESPITE BEING A PRIOR PT. THIS RN REMOVED PT IV FROM LEFT HAND. PT WHEELED OFF UNIT BY DEPARTMENTAL SHIPPING CLERK AND SENT HOME WITH HIS NEPHEW.
== END 2020-08-27 16:04 | disposition home health service (06) ==
LOC: ER 09:07 → MEDS 09:08
PROVIDERS: Physician Assistant; ADMIT Internal Medicine
DX: R00.1 Bradycardia, unspecified (principal); N32.0 Bladder-neck obstruction; R53.1 Weakness; I12.9 Hypertensive chronic kidney disease with stage 1 through stage 4 chronic kidney disease, or unspecified chronic kidney disease; E11.22 Type 2 diabetes mellitus with diabetic chronic kidney disease; N18.30 Chronic kidney disease, stage 3 unspecified; E11.65 Type 2 diabetes mellitus with hyperglycemia; I25.2 Old myocardial infarction; E11.42 Type 2 diabetes mellitus with diabetic polyneuropathy; I25.10 Atherosclerotic heart disease of native coronary artery without angina pectoris; Z87.891 Personal history of nicotine dependence; Z79.82 Long term (current) use of aspirin; Z89.422 Acquired absence of other left toe(s); Z66 Do not resuscitate; Z86.73 Personal history of transient ischemic attack (TIA), and cerebral infarction without residual deficits; Z96.642 Presence of left artificial hip joint; Z79.4 Long term (current) use of insulin; Z79.01 Long term (current) use of anticoagulants; Z23 Encounter for immunization; Z95.5 Presence of coronary angioplasty implant and graft
CPT/HCPCS: 36415; 80048; 80053; 81001; 82947; 83735; 84484; 85025; 87086; 93005; 93010; 96361; 96365; 97110; 97116; 97162; 97165; 97535; 99285-25; A9270; G0008; G0378; J0696; J7030; Q2038

== ENCOUNTER 2020-09-03 15:31 | Emergency (ER) | payer MEDICARE ==
[~2020-09-03] VITALS: Ht 182.9 cm; Wt 79.4 kg
[~2020-09-03 15:31] MED LIST changes: +CEFP200 PO
[2020-09-03] MEDS ORDERED: GABA300 PO (15:56)
[2020-09-03] MEDS ORDERED: BASAGLAR K100 UNIT/1 SC (15:57)
[2020-09-03 17:24] LABS: Source, Urine Catheter
[2020-09-03 17:39] LABS: Appearance, Urine Hazy (Clear); Bilirubin, Urine Neg (Neg); Blood, Urine 3+ (Neg); Color, Urine Yellow (P-Yellow); Glucose Qualitative, Urine 2+ (Neg); Ketones, Urine Neg (Neg); Leukocyte Esterase, Urine 3+ (Neg); Nitrite, Urine Neg (Neg); Protein, Urine 3+ (Neg); Specific Gravity, Urine 1.015 (1.003-1.022); Urobilinogen, Urine NORM (Normal)
[2020-09-03 17:50] LABS: Bacteria Mod /hpf; Mucus Mod (0-Heavy); Squamous Epithelial Cells Not Seen /hpf (Few); White Blood Cells, Urine TNTC /hpf (0-5)
[2020-09-03] MEDS ORDERED: CEPH500 PO (18:02)
== END 2020-09-03 18:50 | disposition home or self-care (01) ==
LOC: ER 15:31
PROVIDERS: Physician Assistant
DX: T83.091A Other mechanical complication of indwelling urethral catheter, initial encounter (principal); E11.9 Type 2 diabetes mellitus without complications; I25.10 Atherosclerotic heart disease of native coronary artery without angina pectoris; I10 Essential (primary) hypertension; E78.5 Hyperlipidemia, unspecified; Z79.82 Long term (current) use of aspirin; Z79.02 Long term (current) use of antithrombotics/antiplatelets; Z79.899 Other long term (current) drug therapy; Z87.891 Personal history of nicotine dependence; Z79.4 Long term (current) use of insulin; Z86.73 Personal history of transient ischemic attack (TIA), and cerebral infarction without residual deficits; W18.30XA Fall on same level, unspecified, initial encounter
CPT/HCPCS: 36415; 51702; 81001; 87077; 87086; 87186; 93005; 93010; 99285-25; A9270

== ENCOUNTER 2020-09-05 13:29 | Inpatient (IN) | payer MEDICARE ==
[~2020-09-05] VITALS: Ht 182.9 cm; Wt 81.0 kg
[~2020-09-05 13:29] MED LIST changes: +CEPH500 PO
[2020-09-05 14:46] LABS: BASOPHILS ABSOLUTE AUTO 0.03 K/mm3 (0.00-0.23); BASOPHILS PERCENT AUTO 1 % (0-2); EOSINOPHILS ABSOLUTE AUTO 0.03 K/mm3 (0.00-0.68); EOSINOPHILS PERCENT AUTO 1 % (0-6); Hematocrit 40.1 % (37.0-53.0); Hemoglobin 12.8 g/dL (13.5-17.5); IMMATURE GRAN ABSOLUTE AUTO 0.03 K/mm3 (0.00-0.10); IMMATURE GRAN PERCENT AUTO 1 % (0-1); LYMPHOCYTES ABSOLUTE AUTO 0.82 K/mm3 (0.84-5.20); LYMPHOCYTES PERCENT AUTO 15 % (21-46); MONOCYTES ABSOLUTE AUTO 0.71 K/mm3 (0.16-1.47); MONOCYTES PERCENT AUTO 13 % (4-13); Mean Corpuscular HGB Conc 31.9 g/dL (31.5-36.5); Mean Corpuscular Volume 94 fL (80-100); Mean Platelet Volume 10.6 fL (9.1-12.4); NEUTROPHILS ABSOLUTE AUTO 3.71 K/mm3 (1.96-9.15); NEUTROPHILS PERCENT AUTO 70 % (41-73); Platelet Count 178 K/mm3 (150-400); RDW Coefficient Variation 13.5 % (11.7-14.2); RDW Standard Deviation 46.6 fL (35.1-46.3); Red Blood Cell Count 4.27 M/mm3 (4.30-5.90); White Blood Cell Count 5.33 K/mm3 (4.00-11.30)
[2020-09-05 15:00] LABS: Albumin/Globulin Ratio 0.7 (0.8-1.8); Bilirubin, Total 0.2 mg/dL (0.1-1.0); Bun/Creatinine Ratio 19.2 (12.0-20.0); Calcium, Blood 8.9 mg/dL (8.5-10.1); Creatinine, Blood 1.56 mg/dL (0.60-1.20); Globulin, Blood 4.2 g/dL (2.2-4.0); Potassium, Blood 4.5 mmol/L (3.5-5.5); Thyroid Stimulating Hormone 0.98 uIU/mL (0.360-4.800); Total Protein, Blood 7.2 g/dL (6.4-8.2); Troponin I 0.097 ng/mL (0.000-0.040)
[2020-09-05 15:07] LABS: Base Excess Venous 2.3 mmol/L; Bicarbonate Venous 25.4 mmol/L (24.0-30.0); PCO2 Venous 49.7 mmHg (38-42); PO2 Venous 40.7 mmHg (38-42); pH Blood Venous 7.36 (7.34-7.37)
[2020-09-05 16:21] LABS: Influenza A, PCR NEGATIVE (NEGATIVE); Influenza B, PCR NEGATIVE (NEGATIVE); Resp Syncytial Virus, PCR NEGATIVE (NEGATIVE)
[2020-09-05 16:57] LABS: SARS-Cov-2 (COVID-19) PCR, MMC POSITIVE (NEGATIVE)
--- NOTE | 2020-09-05 18:26 | NUR ---
REPORT RECEIVED FROM JOE AT [id number]. AWAITING ARRIVAL TO ROOM AT THIS TIME
--- NOTE | 2020-09-05 21:04 | NUR ---
RECEIVED REPORT FROM AKIL ESTRADA. PT ALERT, ANSWERS QUESTIONS APPROPRIATELY. TAKES MEDS WHOLE WITH WATER. DENIES CP, NAUSEA, N/T, AND SOB. ON RA. CHRONIC [place]OR[place] IN PLACE FOR RETENTION. WILL REPLACE DE LA TORRE AND SEND OFF URINE SPECIMEN. PT EDUCATED HOW TO USE CALL LT, CALL LT IN REACH. BED ALARMED ALSO. WILL CONTINUE TO PROVIDE T/O SHIFT.
--- NOTE | 2020-09-05 21:30 | NUR ---
NEW DE LA TORRE CATHETER 14 CYMRAES PLACED WITHOUT DIFFICULTY AND URINE SPECIMEN SENT TO LAB.
--- NOTE | 2020-09-05 21:50 | NUR ---
PT RESTING COMFORTABLY. RESP EVEN ON RA. BED ALARM ON.
[2020-09-05 21:57] LABS: Source, Urine Catheter
[2020-09-05 22:03] LABS: Appearance, Urine Cloudy (Clear); Bilirubin, Urine Neg (Neg); Blood, Urine 5+ (Neg); Color, Urine Yellow (P-Yellow); Glucose Qualitative, Urine 1+ (Neg); Ketones, Urine Neg (Neg); Leukocyte Esterase, Urine 2+ (Neg); Nitrite, Urine Neg (Neg); Protein, Urine 3+ (Neg); Urobilinogen, Urine NORM (Normal)
[2020-09-05 22:10] LABS: Bacteria Many /hpf; Red Blood Cells, Urine 50-100 /hpf (0-2); Squamous Epithelial Cells Not Seen /hpf (Few)
--- NOTE | 2020-09-05 23:58 | NUR ---
PT RESTING. CALL LT IN REACH. BED ALARMED.
--- NOTE | 2020-09-06 01:04 | NUR ---
PT AWAKE, RESP EVEN, CONVERSATIONAL SOB NOTED. O2 SATS AT 95% ON RA. SNACK GIVEN. LR INFUSING AT 125 MLS/HR TO RAC. NO OTHER NEEDS. CALL LT IN REACH. BED ALARMED.
--- NOTE | 2020-09-06 04:23 | NUR ---
PT AWAKE WATCHING TV, ICE WATER GIVEN PER PT REQUEST. NO OTHER NEEDS. CALL LT IN REACH. BED ALARMED.
--- NOTE | 2020-09-06 04:30 | NUR ---
SHIFT SUMMARY: ER ADMIT AT 1850. ALERT AND MOSTLY ORIENTED. ANSWERED QUESTIONS APPROPRIATELY. DENIED CP, SOB, NAUSEA. NOTED SOME CONVERSATIONAL DYSPNEA. OCCASIONAL COUGH MINUS SPUTUM. SINUS RHYTHM AT 97 ON TELE. RA WITH SATS 95-96%. CHRONIC DE [place] WAS CHANGED ON MED FLOOR AND URINE SPECIMEN SENT. TAKES MEDS WHOLE WITH WATER. CBG 187, RECEIVED 20 UNITS OF SEMGLEE. SNACK GIVEN LATER. TROPONINS TRENDING DOWN, 0.082. NO ACUTE CHANGES. WILL PROVIDE CARE UNTIL SHIFT REPORT. BED ALARMED.
[2020-09-06 05:34] LABS: Bun/Creatinine Ratio 19.4 (12.0-20.0); Calcium, Blood 8.2 mg/dL (8.5-10.1); Creatinine, Blood 1.39 mg/dL (0.60-1.20); Potassium, Blood 4.3 mmol/L (3.5-5.5); Troponin I 0.076 ng/mL (0.000-0.040)
--- NOTE | 2020-09-06 06:26 | NUR ---
PT STATES HE'S DOING FINE. NO NEEDS AT THIS TIME. CALL LT IN REACH. BED ALARMED.
--- NOTE | 2020-09-06 19:17 | NUR ---
SHIFT SUMMARY ANGELINA DENIED PAIN THIS SHIFT. CBGS AND INSULIN GIVEN. ON 2L OXYGEN POST HOME OXYGEN EVAL. AO1 WITH GAIT BELT TO PIVOT TO CHAIR, BUT AFTER SITTING IN THE CHAIR FOR AN HOUR, HE WAS UNABLE TO STAND WITH AO2 TO PIVOT BACK TO BED. UTILIZED LIFT TO LIFT HIM BACK TO BED. DR WYMAN AWARE. MICONAZOLE APPLIED TO YEAST RASH IN GROIN, CALAZIME APPLIED TO SACRAL AREA. [place] INTACT AND DRAINING, [place] CARE DONE. INCONT STOOL. CALL LIGHT IN REACH, REPORT GIVEN TO NIGHT NURSE
--- NOTE | 2020-09-06 21:50 | NUR ---
CBG PT's CBG AT 2052 IS AT 384, PER LOW SLIDING SCALE PARAMETERS HS DOSING IS GIVE 4 UNITS OF INSULIN AND NOTIFY PROVIDER. HOSPITALIST NOTIFIED OF THE ABOVE, T.O FOR ADDITIONAL 2 UNITS OF HUMALOG NOTED. NO ACUTE CHANGES NOTED TO PT AT THIS TIME, CALM AND RESTED IN BED, DENIES ANY DISCOMFORT. CALL LIGHT WITHIN REACH.
--- NOTE | 2020-09-07 03:23 | NUR ---
EDGE SETTER SUMMARY PT A&OX4, ABLE TO MAKE NEEDS KNOWN. PLEASANT AND COOPERATIVE TO CARE. NO C/O PAIN OR ANY DISCOMFORT THIS SHIFT. DENIES CP / N&V. SOB W/ ACTIVITY NOTED, PT ON 2LPM O2 VIA NC, SATS >92%. PT CALM AND RESTED IN BED T/O SHIFT. CHRONIC [place] PATENT AND DRAINING. PT DENIES DYSURIA. BED AT LOWEST POSITION W/ ALARMS ON. CALL LIGHT WITHIN REACH.
[2020-09-07 05:07] LABS: Bun/Creatinine Ratio 24.5 (12.0-20.0); Calcium, Blood 7.9 mg/dL (8.5-10.1); Creatinine, Blood 1.43 mg/dL (0.60-1.20)
[2020-09-07 17:27] LABS: Vancomycin, Trough 10.8 ug/mL (5.0-10.0)
--- NOTE | 2020-09-07 18:56 | NUR ---
SHIFT SUMMARY ANGELINA DENIED PAIN THIS SHIFT. ON 2 L OXYGEN. AO1 WITH GAIT BELT AND WALKER TO CHAIR FOR THE AFTERNOON. [place] DRAINING WELL, [place] CARE DONE. RED GROIN--MICONAZOLE APPLIED. EXCORIATED SACRAL AREA, CALAZIME APPLIED. CBGS HIGH, DR WYMAN CHANGED TO MEDIUM SCALE INSULIN. FULLY ORIENTED, LOOKING FORWARD TO HOPEFULLY GETTING OUT OF HOSPITAL TOMORROW TO COVID UNIT. INCONTONT STOOL.TOOK MEDS PRESCRIBED. CALL LIGHT IN REACH, GIVING REPORT TO NIGHT NURSE
--- NOTE | 2020-09-08 04:07 | NUR ---
HEAD OF CYTOGENETICS SUMMARY PT A&OX4, ABLE TO MAKE NEEDS KNOWN. PLEASANT AND COOPERATIVE TO CARE. NO C/O PAIN OR ANY DISCOMFORT THIS SHIFT. PT ON 2LPM O2 VIA NC, SATS >92%. NO C/O CP, SOB, OR N&V. NO ACUTE CHANGES NOTED TO PT THIS SHIFT. INCONTINENT OF STOOL, ATTENDS IN PLACE. [place] CATH PATENT AND DRAINING. BED AT LOWEST POSITION W/ ALARM ON. CALL LIGHT WITHIN REACH.
--- NOTE | 2020-09-08 17:20 | NUR ---
PATIENT IS ALERT AND ORIENTED AND COOPERATIVE WITH CARE. ON 2L O2 VIA NC. PATIENT WORKED WITH PT AND OT TODAY. CHRONIC [place] IS IN PLACE AND DRAINING. PATIENT GETS UP TO THE CHAIR FOR MEALS AND CAN AMBULATE TO THE BATHROOM. PLAN IS TO DISCHARGE TO [facility] TOMORROW ONCE DC ORDERS HAVE BEEN PLACED. WILL CONTINUE TO MONITOR.
--- NOTE | 2020-09-09 04:18 | NUR ---
SHIFT SUMMARY- PT. A&O, PLEASANT AND COOPERATIVE WITH CARE. HAD NO COMPLAINTS DURING THE NIGHT. PT. RESTED QUIETLY IN BED T/O THE NIGHT, NO APPAARENT DISTRESS NOTED. ON 1L NC, [place] CATHETER PATENT AND DRAINING. VSS. CALL LIGHT WITHIN REACH AND SIDE RAILS UPX2. WILL CONT TO MONITOR.
[2020-09-09 05:03] LABS: Anion Gap 5 mmol/L (6-16); Blood Urea Nitrogen 39 mg/dL (8-24); Bun/Creatinine Ratio 32.5 (12.0-20.0); CO2, Blood 28 mmol/L (21-32); Calcium, Blood 8.4 mg/dL (8.5-10.1); Chloride, Blood 104 mmol/L (98-108); Glomerular Filtration Rate >60 (60-); Glucose, Blood 123 mg/dL (70-99); Sodium, Blood 137 mmol/L (136-145)
[2020-09-09] MEDS ORDERED: Acetaminophen325 M1 PO (10:14)
[2020-09-09] MEDS ORDERED: NITR100CA PO (10:14)
--- NOTE | 2020-09-09 11:44 | NUR ---
PT DISCHARGED @ APPROX 1140 VIA WHEELCHAIR BY EMS, PACKET AND FACE SHEET PROVIDED. MED REC COMPLETED BY STORE DETECTIVE. PT TO BE TAKEN TO [facility]. REPORT WAS CALLED TO RN @ [facility] AT APPROX 1100. PT STATED HE HAD ALL OF HIS BELONGINGS. IV WAS REMOVED AND SITE APPEARED WNL. PT DISCHARGED WITH CHRONIC [place] IN PLACE. [place] BAG WAS EMPTIED PRIOR TO DISCHARGE.
== END 2020-09-09 11:50 | DRG 698 ==
LOC: ER 13:29 → MEDS 13:30
PROVIDERS: Emergency Medicine; ADMIT Internal Medicine
PROC: XW033E5 Introduction of Remdesivir Anti-infective into Peripheral Vein, Percutaneous Approach, New Technology Group 5 (ICD-10-PCS; principal; 2020-09-06)
DX: T83.511A Infection and inflammatory reaction due to indwelling urethral catheter, initial encounter (principal); A41.81 Sepsis due to Enterococcus; U07.1 COVID-19; N39.0 Urinary tract infection, site not specified; Z51.5 Encounter for palliative care; I25.10 Atherosclerotic heart disease of native coronary artery without angina pectoris; I12.9 Hypertensive chronic kidney disease with stage 1 through stage 4 chronic kidney disease, or unspecified chronic kidney disease; N18.30 Chronic kidney disease, stage 3 unspecified; E78.5 Hyperlipidemia, unspecified; Z96.642 Presence of left artificial hip joint; E11.42 Type 2 diabetes mellitus with diabetic polyneuropathy; E11.22 Type 2 diabetes mellitus with diabetic chronic kidney disease; I25.2 Old myocardial infarction; Z95.5 Presence of coronary angioplasty implant and graft; Z86.73 Personal history of transient ischemic attack (TIA), and cerebral infarction without residual deficits; Z90.89 Acquired absence of other organs; Z87.891 Personal history of nicotine dependence; Z79.4 Long term (current) use of insulin; Z79.02 Long term (current) use of antithrombotics/antiplatelets; Z79.82 Long term (current) use of aspirin; Z79.899 Other long term (current) drug therapy
CPT/HCPCS: 0241U; 36415; 51702; 71045; 80048; 80053; 80202; 81001; 82803; 82947; 83605; 84443; 84484; 85025; 87040; 87077; 87086; 87186; 93005; 93010; 94761; 94762; 96360; 96372; 96375; 97110; 97116; 97162; 97165; 97530; 99285-25; A9270; G0378; J1644; J3370; J7030; J7050; J7120

== ENCOUNTER 2021-01-02 17:38 | Inpatient (IN) | payer MEDICARE ==
[~2021-01-02] VITALS: Ht 182.9 cm; Wt 82.0 kg
[~2021-01-02 17:38] MED LIST changes: +Acetaminophen325 M1 PO; +NITR100CA PO
[2021-01-02 18:28] LABS: BASOPHILS ABSOLUTE AUTO 0.08 K/mm3 (0.00-0.23); BASOPHILS PERCENT AUTO 1 % (0-2); EOSINOPHILS ABSOLUTE AUTO 0.04 K/mm3 (0.00-0.68); EOSINOPHILS PERCENT AUTO 0 % (0-6); Hematocrit 40.6 % (37.0-53.0); Hemoglobin 12.8 g/dL (13.5-17.5); IMMATURE GRAN ABSOLUTE AUTO 0.09 K/mm3 (0.00-0.10); IMMATURE GRAN PERCENT AUTO 1 % (0-1); LYMPHOCYTES ABSOLUTE AUTO 1.47 K/mm3 (0.84-5.20); LYMPHOCYTES PERCENT AUTO 9 % (21-46); MONOCYTES ABSOLUTE AUTO 1.35 K/mm3 (0.16-1.47); MONOCYTES PERCENT AUTO 8 % (4-13); Mean Corpuscular HGB 27.8 pg (26.0-34.0); Mean Corpuscular HGB Conc 31.5 g/dL (31.5-36.5); Mean Corpuscular Volume 88 fL (80-100); NEUTROPHILS ABSOLUTE AUTO 14.29 K/mm3 (1.96-9.15); NEUTROPHILS PERCENT AUTO 83 % (41-73); Platelet Count 291 K/mm3 (150-400); RDW Coefficient Variation 14.9 % (11.7-14.2); RDW Standard Deviation 47.7 fL (35.1-46.3); Red Blood Cell Count 4.61 M/mm3 (4.30-5.90); White Blood Cell Count 17.32 K/mm3 (4.00-11.30)
[2021-01-02 18:49] LABS: Albumin, Blood 2.6 g/dL (3.4-5.0); Albumin/Globulin Ratio 0.5 (0.8-1.8); Bilirubin, Total 0.4 mg/dL (0.1-1.0); Bun/Creatinine Ratio 25.3 (12.0-20.0); Calcium, Blood 9.8 mg/dL (8.5-10.1); Creatinine, Blood 1.74 mg/dL (0.60-1.20); Globulin, Blood 5.6 g/dL (2.2-4.0); Potassium, Blood 4.8 mmol/L (3.5-5.5); Total Protein, Blood 8.2 g/dL (6.4-8.2)
[2021-01-02 20:57] LABS: Source, Urine Voided
[2021-01-02 21:00] LABS: Appearance, Urine Turbid (Clear); Bilirubin, Urine Neg (Neg); Blood, Urine 5+ (Neg); Glucose Qualitative, Urine 4+ (Neg); Ketones, Urine Neg (Neg); Leukocyte Esterase, Urine 3+ (Neg); Nitrite, Urine Neg (Neg); Protein, Urine 3+ (Neg); Specific Gravity, Urine 1.015 (1.003-1.022); Urobilinogen, Urine NORM (Normal)
[2021-01-02 21:07] LABS: Color, Urine Yellow (P-Yellow); White Blood Cells, Urine TNTC /hpf (0-5)
[2021-01-02 21:08] LABS: Bacteria Many /hpf; Red Blood Cells, Urine 0-2 /hpf (0-2); Squamous Epithelial Cells Not Seen /hpf (Few)
[2021-01-02] MEDS ORDERED: BASAGLAR K100 UNIT/1 SC (21:44)
[2021-01-02] MEDS ORDERED: METOPROLOL SUCC25 MG PO (21:44)
[2021-01-02] MEDS ORDERED: ATORVASTATIN CA20 MG PO (21:44)
[2021-01-02] MEDS ORDERED: SERT100 PO (21:44)
[2021-01-02] MEDS ORDERED: Aspirin EC81 MG PO (21:49)
[2021-01-03 05:15] LABS: Adenovirus F 40/41 Not Detected (NOT DETECT); Astrovirus Not Detected (NOT DETECT); Campylobacter Sp Not Detected (NOT DETECT); Cryptosporidium Not Detected (NOT DETECT); Cyclospora Cayetanensis Not Detected (NOT DETECT); E. Coli O157 Not Detected (NOT DETECT); Entamoeba Histolytica Not Detected (NOT DETECT); Enteroaggregative E. coli-EAEC Not Detected (NOT DETECT); Enteropathogenic E. coli-EPEC Not Detected (NOT DETECT); Enterotoxigenic E. coli-ETEC Not Detected (NOT DETECT); Giardia Lamblia Not Detected (NOT DETECT); Norovirus GI/GII Not Detected (NOT DETECT); Plesiomonas Shigelloides Not Detected (NOT DETECT); Rotavirus A Not Detected (NOT DETECT); Salmonella Sp Not Detected (NOT DETECT); Sapovirus Not Detected (NOT DETECT); Shiga Toxin-prod E. coli-STEC Not Detected (NOT DETECT); Shigella/Enteroin E. coli-EIEC Not Detected (NOT DETECT); Vibrio Cholerae Not Detected (NOT DETECT); Vibrio Sp Not Detected (NOT DETECT); Yersinia Enterocolitica Not Detected (NOT DETECT)
[2021-01-03 05:36] LABS: BASOPHILS ABSOLUTE AUTO 0.06 K/mm3 (0.00-0.23); BASOPHILS PERCENT AUTO 0 % (0-2); EOSINOPHILS ABSOLUTE AUTO 0.13 K/mm3 (0.00-0.68); EOSINOPHILS PERCENT AUTO 1 % (0-6); Hematocrit 37.3 % (37.0-53.0); Hemoglobin 11.8 g/dL (13.5-17.5); IMMATURE GRAN ABSOLUTE AUTO 0.07 K/mm3 (0.00-0.10); IMMATURE GRAN PERCENT AUTO 0 % (0-1); LYMPHOCYTES ABSOLUTE AUTO 1.16 K/mm3 (0.84-5.20); LYMPHOCYTES PERCENT AUTO 7 % (21-46); MONOCYTES ABSOLUTE AUTO 0.91 K/mm3 (0.16-1.47); MONOCYTES PERCENT AUTO 6 % (4-13); Mean Corpuscular HGB Conc 31.6 g/dL (31.5-36.5); Mean Corpuscular Volume 88 fL (80-100); Mean Platelet Volume 9.8 fL (9.1-12.4); NEUTROPHILS ABSOLUTE AUTO 13.25 K/mm3 (1.96-9.15); NEUTROPHILS PERCENT AUTO 85 % (41-73); Platelet Count 260 K/mm3 (150-400); RDW Standard Deviation 48.6 fL (35.1-46.3); Red Blood Cell Count 4.22 M/mm3 (4.30-5.90); White Blood Cell Count 15.58 K/mm3 (4.00-11.30)
[2021-01-03 06:03] LABS: Albumin, Blood 2.3 g/dL (3.4-5.0); Albumin/Globulin Ratio 0.5 (0.8-1.8); Bilirubin, Total 0.3 mg/dL (0.1-1.0); Bun/Creatinine Ratio 23.3 (12.0-20.0); Calcium, Blood 8.5 mg/dL (8.5-10.1); Creatinine, Blood 1.63 mg/dL (0.60-1.20); Globulin, Blood 4.7 g/dL (2.2-4.0); Potassium, Blood 4.2 mmol/L (3.5-5.5)
[2021-01-03 14:11] LABS: Source, Urine Clean Catch
[2021-01-03 14:30] LABS: Appearance, Urine Turbid (Clear); Bilirubin, Urine Neg (Neg); Blood, Urine 4+ (Neg); Color, Urine Yellow (P-Yellow); Glucose Qualitative, Urine 3+ (Neg); Ketones, Urine 1+ (Neg); Leukocyte Esterase, Urine 3+ (Neg); Nitrite, Urine Pos (Neg); Protein, Urine 3+ (Neg); Specific Gravity, Urine 1.025 (1.003-1.022); Urobilinogen, Urine NORM (Normal)
[2021-01-03 14:48] LABS: White Blood Cells, Urine TNTC /hpf (0-5)
[2021-01-03 14:51] LABS: Bacteria Many /hpf; Squamous Epithelial Cells Rare /hpf (Few)
--- NOTE | 2021-01-03 18:42 | NUR ---
SHIFT SUMMARY ANGELINA DENIED PAIN THIS SHIFT. ARRIVED FROM ER AROUND 0930. PICTURES TAKEN OF EXCORATED SKIN AND 2 SMALL PRESSURE ULCERS ON SACRAL AREA. CLEANED PROMPTLY FROM FECAL INCONTINENCE, HAD 5-6 BM SINCE ARRIVAL, CALAZIME APPLIED LIBERALLY TO ALL SACRAL AREA. RETENTION NOTED (422ML IN BLADDER, UNABLE TO PEE), DR WYMAN CALLED, HE ORDERED [place] CATHETHER. PLACED AND SENT UA. URINE OUTPUT TURBID, BROWN. PT/OT ORDERED. TELE DC'D. CBGS HIGH, COVERED WITH INSULIN. CALL LIGHT IN REACH, [facility]
--- NOTE | 2021-01-04 05:03 | NUR ---
SHIFT SUMMARY PT SLEPT OFF AND ON BETWEEN STAFF AND MEDICAL EQUIPMENT WAKING HIM. CONTINUES TO HAVE FREQUENT INCONTINENT UNFORMED STOOL. FREQUENT CHANGES AND BARRIER CREAM SHOWING IMPROVEMENT TO EXCORIATED SKIN ON BUTTOCKS AND KATHRIN AREA. [place] CATHETER PATENT AND DRAINING. URINE CLOUDY. PT REMAINED IN BED THROUGHOUT THE NIGHT. VITAL SIGNS STABLE. NO ACUTE CHANGES THIS SHIFT. WILL CONTINUE TO MONITOR.
[2021-01-04 05:40] LABS: Hematocrit 31.5 % (37.0-53.0); Hemoglobin 10.2 g/dL (13.5-17.5); Mean Corpuscular HGB Conc 32.4 g/dL (31.5-36.5); Mean Corpuscular Volume 87 fL (80-100); Mean Platelet Volume 9.7 fL (9.1-12.4); Platelet Count 211 K/mm3 (150-400); RDW Coefficient Variation 14.6 % (11.7-14.2); RDW Standard Deviation 46.5 fL (35.1-46.3); Red Blood Cell Count 3.64 M/mm3 (4.30-5.90); White Blood Cell Count 9.87 K/mm3 (4.00-11.30)
[2021-01-04 06:03] LABS: Anion Gap 7 mmol/L (6-16); Blood Urea Nitrogen 28 mg/dL (8-24); Bun/Creatinine Ratio 23.1 (12.0-20.0); CO2, Blood 21 mmol/L (21-32); Calcium, Blood 7.8 mg/dL (8.5-10.1); Chloride, Blood 109 mmol/L (98-108); Creatinine, Blood 1.21 mg/dL (0.60-1.20); Glomerular Filtration Rate >60 (60-); Glucose, Blood 191 mg/dL (70-99); Sodium, Blood 137 mmol/L (136-145)
--- NOTE | 2021-01-04 16:42 | NUR ---
SHIFT SUMMARY PATIENT ALERT AND ORIENTED THIS SHIFT. PATIENT REMAINS ON BEDREST. PATIENT UP WITH PT THIS AM. PATIENT TURNS WELL IN BED TO ASSIST WITH CHANGES. PATIENT WITH ONE BM THIS SHIFT. PATIENT CURRENTLY LYING IN BED WATCHING TELEVISION.
--- NOTE | 2021-01-05 04:50 | NUR ---
SHIFT SUMMARY PT HAD AN UNEVENTFUL NIGHT. SLEPT A LITTLE BETTER THAN THE NIGHT BEFORE. HAD ONE BOWEL MOVEMENT TONIGHT AND WAS CONTINENT FOR IT. PT WALKED INTO THE BATHROOM WITH JUST A SBA AND A FWW. SLOW MOVING BUT STEADY ON HIS FEET. KATHRIN/BUTTUCKS REMAIN EXCORIATED BUT CONTINUE TO IMPROVE WITH BARRIER CREAM APPLIED. [place] CATHETER PATENT AND DRAINING. URINE YELLOW. LIGHT COMPARED TO NIGHT BEFORE. VITAL SIGNS STABLE. NO COMPLAINTS OF PAIN OR DISCOMFORT. WILL CONTINUE TO MONITOR AND REPORT TO DAY RN.
[2021-01-05 05:50] LABS: Anion Gap 6 mmol/L (6-16); Blood Urea Nitrogen 21 mg/dL (8-24); Bun/Creatinine Ratio 19.3 (12.0-20.0); CO2, Blood 23 mmol/L (21-32); Calcium, Blood 8.3 mg/dL (8.5-10.1); Chloride, Blood 110 mmol/L (98-108); Creatinine, Blood 1.09 mg/dL (0.60-1.20); Glomerular Filtration Rate >60 (60-); Glucose, Blood 185 mg/dL (70-99); Sodium, Blood 139 mmol/L (136-145)
--- NOTE | 2021-01-05 18:43 | NUR ---
SHIFT SUMMARY PT A/O X4; PLEASANT AND COOPERATIVE WITH CARE. PT CAME IN WITH C.DIFF AND UROSEPSIS. NO INSTANCES OF LOOSE STOOLS THIS SHIFT, WHICH IS AN IMPROVEMENT. [place] IN PLACE AND DRAINING TO GRAVITY. PT TO FOLLOW UP WITH UROLOGY AFTER DISCHARGE IN REGARDS TO HIS RETENTION. VSS. RESTING COMFORTABLY IN BED WITH HIS CALL LIGHT IN REACH.
--- NOTE | 2021-01-06 04:25 | NUR ---
SHIFT SUMMARY A/OX3, PLEASANT AND COOPEARTIVE WITH CARE. DENIES PAIN OR SOB. [place] PATENT AND DRAINING TO GRAVITY. NO STOOLS THIS SHIFT. VSS, NO ACUTE CHANGES AT THIS TIME. BED IN LOWEST POSITION WITH CALL LIGHT IN REACH. WILL CONTINUE TO MONITOR AND REPORT TO ONCOMING RN.
[2021-01-06] MEDS ORDERED: TAMS.4ER PO (14:39)
[2021-01-06] MEDS ORDERED: VISBIOME 112.51 EACH PO (14:41)
[2021-01-06] MEDS ORDERED: VANCOCIN HCL250 MG PO (14:41)
[2021-01-06] MEDS ORDERED: NITR100CA PO (14:42)
--- NOTE | 2021-01-06 18:43 | NUR ---
PT DISCHARGE HOME WITH NIECE TO TRANSPORT. ALL PAPERWORK REVIEWED AND EDUCATIONAL MATERIAL SENT WITH PT. PT DISCHARGED WITH [place] PER DR ABAD. PT'S NIECE INSTRUCTED TO FOLLOW UP WITH UROLOGY OUTPATIENT. MEDICATION FAXED TO [facility] PER NIECE'S REQUEST. ALL PERSONAL BELONINGS TAKEN. NO DISTRESS NOTED. PT COOPERATIVE WITH ALL CARE AND AO TODAY.
== END 2021-01-06 18:47 | disposition home health service (06) | DRG 872 ==
LOC: ER 17:38 → ERHOLD 21:17 → MEDS 21:17
PROVIDERS: Emergency Medicine; Internal Medicine; ADMIT Internal Medicine
DX: A41.89 Other specified sepsis (principal); N39.0 Urinary tract infection, site not specified; N17.9 Acute kidney failure, unspecified; A04.72 Enterocolitis due to Clostridium difficile, not specified as recurrent; N13.30 Unspecified hydronephrosis; E11.65 Type 2 diabetes mellitus with hyperglycemia; I25.10 Atherosclerotic heart disease of native coronary artery without angina pectoris; Z74.09 Other reduced mobility; R33.9 Retention of urine, unspecified; E86.0 Dehydration; E11.42 Type 2 diabetes mellitus with diabetic polyneuropathy; E78.5 Hyperlipidemia, unspecified; I10 Essential (primary) hypertension; Z86.16 Personal history of COVID-19; Z86.73 Personal history of transient ischemic attack (TIA), and cerebral infarction without residual deficits; Z79.02 Long term (current) use of antithrombotics/antiplatelets; Z96.642 Presence of left artificial hip joint; I25.2 Old myocardial infarction; Z95.5 Presence of coronary angioplasty implant and graft; Z79.82 Long term (current) use of aspirin; Z79.899 Other long term (current) drug therapy; Z79.4 Long term (current) use of insulin; Z90.89 Acquired absence of other organs; Z89.422 Acquired absence of other left toe(s)
CPT/HCPCS: 0097U; 36415; 51798; 71045; 76770; 80048; 80053; 81001; 82947; 83605; 83880; 85025; 85027; 87040; 87077; 87086; 87186; 87324; 93005; 93010; 96360; 97110; 97116; 97161; 99285-25; A9270; J0696; J1650; J1815; J7030

== ENCOUNTER 2021-02-03 14:44 | Emergency (ER) | payer MEDICARE ==
[~2021-02-03] VITALS: Ht 182.9 cm; Wt 83.9 kg
[~2021-02-03 14:44] MED LIST changes: +ATORVASTATIN CA20 MG PO; +Aspirin EC81 MG PO; +METOPROLOL SUCC25 MG PO; +VANCOCIN HCL250 MG PO; +VISBIOME 112.51 EACH PO
[2021-02-03 16:15] LABS: BASOPHILS PERCENT AUTO 1 % (0-2); EOSINOPHILS ABSOLUTE AUTO 0.47 K/mm3 (0.00-0.68); EOSINOPHILS PERCENT AUTO 4 % (0-6); Hematocrit 39.8 % (37.0-53.0); Hemoglobin 12.6 g/dL (13.5-17.5); IMMATURE GRAN ABSOLUTE AUTO 0.05 K/mm3 (0.00-0.10); IMMATURE GRAN PERCENT AUTO 0 % (0-1); LYMPHOCYTES ABSOLUTE AUTO 2.01 K/mm3 (0.84-5.20); LYMPHOCYTES PERCENT AUTO 18 % (21-46); MONOCYTES ABSOLUTE AUTO 0.61 K/mm3 (0.16-1.47); MONOCYTES PERCENT AUTO 5 % (4-13); Mean Corpuscular HGB 28.3 pg (26.0-34.0); Mean Corpuscular HGB Conc 31.7 g/dL (31.5-36.5); Mean Corpuscular Volume 89 fL (80-100); Mean Platelet Volume 10.2 fL (9.1-12.4); NEUTROPHILS PERCENT AUTO 71 % (41-73); Platelet Count 210 K/mm3 (150-400); RDW Coefficient Variation 14.6 % (11.7-14.2); RDW Standard Deviation 47.4 fL (35.1-46.3); Red Blood Cell Count 4.45 M/mm3 (4.30-5.90); White Blood Cell Count 11.24 K/mm3 (4.00-11.30)
[2021-02-03 16:33] LABS: Albumin, Blood 2.8 g/dL (3.4-5.0); Albumin/Globulin Ratio 0.7 (0.8-1.8); Bilirubin, Total 0.2 mg/dL (0.1-1.0); Bun/Creatinine Ratio 28.9 (12.0-20.0); Calcium, Blood 8.8 mg/dL (8.5-10.1); Creatinine, Blood 1.35 mg/dL (0.60-1.20); Potassium, Blood 4.2 mmol/L (3.5-5.5); Total Protein, Blood 6.8 g/dL (6.4-8.2)
[2021-02-03] MEDS ORDERED: Vancocin HCl125 MG PO (17:36)
== END 2021-02-03 19:15 | disposition home or self-care (01) ==
LOC: ER 14:44
PROVIDERS: Physician Assistant
DX: A04.72 Enterocolitis due to Clostridium difficile, not specified as recurrent (principal); E11.42 Type 2 diabetes mellitus with diabetic polyneuropathy; I25.10 Atherosclerotic heart disease of native coronary artery without angina pectoris; I10 Essential (primary) hypertension; E78.5 Hyperlipidemia, unspecified; Z79.4 Long term (current) use of insulin; Z87.891 Personal history of nicotine dependence
CPT/HCPCS: 51702; 80053; 83605; 85025; 99285; A9270; J7030

== ENCOUNTER 2021-03-13 08:31 | Emergency (ER) | payer MEDICARE ==
[~2021-03-13] VITALS: Ht 182.9 cm; Wt 83.9 kg
[~2021-03-13 08:31] MED LIST changes: +Vancocin HCl125 MG PO
[2021-03-13 09:10] LABS: BASOPHILS ABSOLUTE AUTO 0.11 K/mm3 (0.00-0.23); BASOPHILS PERCENT AUTO 1 % (0-2); EOSINOPHILS ABSOLUTE AUTO 0.68 K/mm3 (0.00-0.68); EOSINOPHILS PERCENT AUTO 8 % (0-6); Hemoglobin 12.1 g/dL (13.5-17.5); IMMATURE GRAN ABSOLUTE AUTO 0.03 K/mm3 (0.00-0.10); IMMATURE GRAN PERCENT AUTO 0 % (0-1); LYMPHOCYTES ABSOLUTE AUTO 2.09 K/mm3 (0.84-5.20); LYMPHOCYTES PERCENT AUTO 24 % (21-46); MONOCYTES ABSOLUTE AUTO 0.54 K/mm3 (0.16-1.47); MONOCYTES PERCENT AUTO 6 % (4-13); Mean Corpuscular HGB 28.7 pg (26.0-34.0); Mean Corpuscular HGB Conc 31.8 g/dL (31.5-36.5); Mean Corpuscular Volume 90 fL (80-100); Mean Platelet Volume 9.6 fL (9.1-12.4); NEUTROPHILS ABSOLUTE AUTO 5.43 K/mm3 (1.96-9.15); NEUTROPHILS PERCENT AUTO 61 % (41-73); Platelet Count 230 K/mm3 (150-400); RDW Standard Deviation 46.4 fL (35.1-46.3); Red Blood Cell Count 4.21 M/mm3 (4.30-5.90); White Blood Cell Count 8.88 K/mm3 (4.00-11.30)
[2021-03-13 09:44] LABS: Albumin, Blood 2.8 g/dL (3.4-5.0); Albumin/Globulin Ratio 0.7 (0.8-1.8); Bilirubin, Total 0.2 mg/dL (0.1-1.0); Bun/Creatinine Ratio 23.5 (12.0-20.0); Calcium, Blood 8.1 mg/dL (8.5-10.1); Creatinine, Blood 1.32 mg/dL (0.60-1.20); Globulin, Blood 3.9 g/dL (2.2-4.0); Potassium, Blood 3.7 mmol/L (3.5-5.5); Total Protein, Blood 6.7 g/dL (6.4-8.2)
[2021-03-13 11:08] LABS: Source, Urine Catheter
[2021-03-13 11:37] LABS: Appearance, Urine Turbid (Clear); Bilirubin, Urine Neg (Neg); Blood, Urine 3+ (Neg); Color, Urine Red (P-Yellow); Glucose Qualitative, Urine Neg (Neg); Ketones, Urine Neg (Neg); Leukocyte Esterase, Urine Neg (Neg); Nitrite, Urine Neg (Neg); Protein, Urine 3+ (Neg); Specific Gravity, Urine 1.015 (1.003-1.022); Urobilinogen, Urine NORM (Normal)
[2021-03-13 11:41] LABS: Bacteria Mod /hpf; Red Blood Cells, Urine TNTC /hpf (0-2); Squamous Epithelial Cells Rare /hpf (Few); White Blood Cells, Urine 0-2 /hpf (0-5)
== END 2021-03-13 14:25 | disposition home or self-care (01) ==
LOC: ER 08:31
PROVIDERS: Emergency Medicine
DX: R31.9 Hematuria, unspecified (principal); E11.42 Type 2 diabetes mellitus with diabetic polyneuropathy; I10 Essential (primary) hypertension; I25.2 Old myocardial infarction; I25.10 Atherosclerotic heart disease of native coronary artery without angina pectoris; E78.5 Hyperlipidemia, unspecified; Z79.899 Other long term (current) drug therapy; Z79.82 Long term (current) use of aspirin; Z79.4 Long term (current) use of insulin
CPT/HCPCS: 76770; 80053; 81001; 85025; 87086; 99284-25

== ENCOUNTER → 2021-04-16 | Outpatient (CLI) | payer MEDICARE ==
[2021-04-16 12:37] LABS: Appearance, Urine Turbid (Clear); Bilirubin, Urine Neg (Neg); Blood, Urine 3+ (Neg); Color, Urine Yellow (P-Yellow); Glucose Qualitative, Urine Neg (Neg); Ketones, Urine Neg (Neg); Leukocyte Esterase, Urine 3+ (Neg); Nitrite, Urine Pos (Neg); Protein, Urine 3+ (Neg); Specific Gravity, Urine 1.015 (1.003-1.022); Urobilinogen, Urine NORM (Normal)
[2021-04-16 12:42] LABS: Bacteria Many /hpf; Mucus Heavy (0-Heavy); Squamous Epithelial Cells Rare /hpf (Few); Transitional Epithelial Cells Rare /hpf (0-Rare); Triple Phosphate Crystals Many /hpf; White Blood Cells, Urine 25-50 /hpf (0-5)
[2021-04-16 12:44] LABS: Source, Urine Catheter
== END | disposition home or self-care (01) ==
LOC: LAB SHORT 10:15 → LAB 10:15
PROVIDERS: Student in an Organized Health Care Education/Training Program
DX: N39.0 Urinary tract infection, site not specified (principal); R82.90 Unspecified abnormal findings in urine
CPT/HCPCS: 81001; 87077; 87086; 87186

== ENCOUNTER → 2021-07-28 | Outpatient (CLI) | payer MEDICARE ==
[~2021-07-28] MED LIST changes: +CIPR500 PO
[2021-07-28 18:01] LABS: BASOPHILS ABSOLUTE AUTO 0.07 K/mm3 (0.00-0.23); BASOPHILS PERCENT AUTO 1 % (0-2); EOSINOPHILS ABSOLUTE AUTO 0.34 K/mm3 (0.00-0.68); EOSINOPHILS PERCENT AUTO 5 % (0-6); Hematocrit 40.6 % (37.0-53.0); Hemoglobin 13.1 g/dL (13.5-17.5); IMMATURE GRAN ABSOLUTE AUTO 0.02 K/mm3 (0.00-0.10); IMMATURE GRAN PERCENT AUTO 0 % (0-1); LYMPHOCYTES ABSOLUTE AUTO 1.52 K/mm3 (0.84-5.20); LYMPHOCYTES PERCENT AUTO 23 % (21-46); MONOCYTES ABSOLUTE AUTO 0.51 K/mm3 (0.16-1.47); MONOCYTES PERCENT AUTO 8 % (4-13); Mean Corpuscular HGB 29.4 pg (26.0-34.0); Mean Corpuscular HGB Conc 32.3 g/dL (31.5-36.5); Mean Corpuscular Volume 91 fL (80-100); Mean Platelet Volume 10.1 fL (9.1-12.4); NEUTROPHILS ABSOLUTE AUTO 4.12 K/mm3 (1.96-9.15); NEUTROPHILS PERCENT AUTO 63 % (41-73); Platelet Count 214 K/mm3 (150-400); RDW Coefficient Variation 13.5 % (11.7-14.2); RDW Standard Deviation 45.6 fL (35.1-46.3); Red Blood Cell Count 4.46 M/mm3 (4.30-5.90); White Blood Cell Count 6.58 K/mm3 (4.00-11.30)
== END ==
LOC: LAB SHORT 17:55
PROVIDERS: Family Medicine
DX: R31.0 Gross hematuria (principal)
CPT/HCPCS: 85025; 87077; 87086; 87186

== ENCOUNTER 2021-12-25 08:45 | Emergency (ER) | payer MEDICARE ==
[~2021-12-25] VITALS: Ht 182.9 cm; Wt 83.0 kg
[2021-12-25 10:04] LABS: BASOPHILS ABSOLUTE AUTO 0.07 K/mm3 (0.00-0.23); BASOPHILS PERCENT AUTO 1 % (0-2); EOSINOPHILS ABSOLUTE AUTO 0.27 K/mm3 (0.00-0.68); EOSINOPHILS PERCENT AUTO 3 % (0-6); Hematocrit 43.3 % (37.0-53.0); Hemoglobin 13.9 g/dL (13.5-17.5); IMMATURE GRAN ABSOLUTE AUTO 0.01 K/mm3 (0.00-0.10); IMMATURE GRAN PERCENT AUTO 0 % (0-1); LYMPHOCYTES ABSOLUTE AUTO 1.37 K/mm3 (0.84-5.20); LYMPHOCYTES PERCENT AUTO 15 % (21-46); MONOCYTES ABSOLUTE AUTO 0.54 K/mm3 (0.16-1.47); MONOCYTES PERCENT AUTO 6 % (4-13); Mean Corpuscular HGB 29.5 pg (26.0-34.0); Mean Corpuscular HGB Conc 32.1 g/dL (31.5-36.5); Mean Corpuscular Volume 92 fL (80-100); Mean Platelet Volume 9.7 fL (9.1-12.4); NEUTROPHILS ABSOLUTE AUTO 6.88 K/mm3 (1.96-9.15); NEUTROPHILS PERCENT AUTO 75 % (41-73); Platelet Count 207 K/mm3 (150-400); RDW Coefficient Variation 12.6 % (11.7-14.2); RDW Standard Deviation 42.6 fL (35.1-46.3); Red Blood Cell Count 4.71 M/mm3 (4.30-5.90); White Blood Cell Count 9.14 K/mm3 (4.00-11.30)
[2021-12-25] MEDS ORDERED: GABA300 PO (10:04)
[2021-12-25] MEDS ORDERED: CLOP75 PO (10:06)
[2021-12-25 10:22] LABS: Albumin, Blood 3.2 g/dL (3.4-5.0); Albumin/Globulin Ratio 0.8 (0.8-1.8); Bilirubin, Total 0.4 mg/dL (0.1-1.0); Calcium, Blood 9.3 mg/dL (8.5-10.1); Creatinine, Blood 1.83 mg/dL (0.60-1.20); Globulin, Blood 3.9 g/dL (2.2-4.0); Potassium, Blood 4.8 mmol/L (3.5-5.5); Total Protein, Blood 7.1 g/dL (6.4-8.2)
[2021-12-25] MEDS ORDERED: MONDOXYNE NL100 MG PO (11:33)
[2021-12-25] MEDS ORDERED: CEPH500 PO (11:33)
== END 2021-12-25 11:45 | disposition home or self-care (01) ==
LOC: ER 08:45
PROVIDERS: Physician Assistant
DX: L03.031 Cellulitis of right toe (principal); E11.42 Type 2 diabetes mellitus with diabetic polyneuropathy; I25.10 Atherosclerotic heart disease of native coronary artery without angina pectoris; I10 Essential (primary) hypertension; E78.5 Hyperlipidemia, unspecified; Z86.73 Personal history of transient ischemic attack (TIA), and cerebral infarction without residual deficits; Z79.899 Other long term (current) drug therapy; Z79.4 Long term (current) use of insulin; Z79.02 Long term (current) use of antithrombotics/antiplatelets
CPT/HCPCS: 36415; 73630; 80053; 85025; 85651

== ENCOUNTER 2022-01-04 12:07 | Inpatient (IN) | payer MEDICARE ==
[~2022-01-04] VITALS: Ht 182.9 cm; Wt 88.0 kg
[~2022-01-04 12:07] MED LIST changes: +MONDOXYNE NL100 MG PO
[2022-01-04 14:59] LABS: BASOPHILS ABSOLUTE AUTO 0.05 K/mm3 (0.00-0.23); BASOPHILS PERCENT AUTO 1 % (0-2); EOSINOPHILS ABSOLUTE AUTO 0.15 K/mm3 (0.00-0.68); EOSINOPHILS PERCENT AUTO 2 % (0-6); Hematocrit 41.4 % (37.0-53.0); Hemoglobin 13.5 g/dL (13.5-17.5); IMMATURE GRAN ABSOLUTE AUTO 0.01 K/mm3 (0.00-0.10); IMMATURE GRAN PERCENT AUTO 0 % (0-1); LYMPHOCYTES ABSOLUTE AUTO 1.26 K/mm3 (0.84-5.20); LYMPHOCYTES PERCENT AUTO 14 % (21-46); MONOCYTES ABSOLUTE AUTO 0.64 K/mm3 (0.16-1.47); MONOCYTES PERCENT AUTO 7 % (4-13); Mean Corpuscular HGB 29.9 pg (26.0-34.0); Mean Corpuscular HGB Conc 32.6 g/dL (31.5-36.5); Mean Corpuscular Volume 92 fL (80-100); Mean Platelet Volume 10.3 fL (9.1-12.4); NEUTROPHILS PERCENT AUTO 76 % (41-73); Platelet Count 223 K/mm3 (150-400); RDW Coefficient Variation 12.4 % (11.7-14.2); RDW Standard Deviation 41.7 fL (35.1-46.3); Red Blood Cell Count 4.51 M/mm3 (4.30-5.90); White Blood Cell Count 8.81 K/mm3 (4.00-11.30)
[2022-01-04 15:22] LABS: Bun/Creatinine Ratio 23.9 (12.0-20.0); Calcium, Blood 8.7 mg/dL (8.5-10.1); Creatinine, Blood 1.59 mg/dL (0.60-1.20); Potassium, Blood 5.2 mmol/L (3.5-5.5)
--- NOTE | 2022-01-04 18:49 | NUR ---
PT ADMITTED TO FLOOR AT 1700. PT ORIENTED TO ROOM CALL LIGHT. CALL PLACED TO DAUGHTER TO VERIFY HOME MEDICATIONS. PT HAS CHRONIC INDWELLING DE [place] T[place] CATHETER. CLEAR YELLOW URINE DRAINING AT THIS TIME. PT ORIENTED X4. WOUNDS TO TOES PHOTOGRAPHED PER PT AUTHORIZATION. BLOOD CONSENT SIGNED. PODIATRY CONSULT CALLED. DINNER ORDERED FOR PATIENT. PT DENIES PAIN/NAUSEA ANY ACUTE CONCERNS AT THIS TIME. WILL HAND OFF TO NOC SHIFT AND GIVE REPORT.
--- NOTE | 2022-01-04 19:00 | NUR ---
RECEIVED REPORT AND ASSUMED CARE OF PT. HE IS LYING IN BED WITH THE CALL LIGHT IN REACH, DENIES ANY NEEDS AT THIS TIME.
[2022-01-05 01:34] LABS: Source, Urine Foley catheter
[2022-01-05 01:39] LABS: Appearance, Urine Hazy (Clear); Bilirubin, Urine Neg (Neg); Blood, Urine 3+ (Neg); Glucose Qualitative, Urine 4+ (Neg); Ketones, Urine Neg (Neg); Leukocyte Esterase, Urine 2+ (Neg); Nitrite, Urine Neg (Neg); Protein, Urine 2+ (Neg); Specific Gravity, Urine 1.015 (1.003-1.022); Urobilinogen, Urine NORM (Normal)
[2022-01-05 01:54] LABS: Color, Urine Pale Yellow (P-Yellow)
[2022-01-05 02:02] LABS: Bacteria Many /hpf; Hyaline Casts 0-2 /lpf (0-2); Red Blood Cells, Urine 0-2 /hpf (0-2); Squamous Epithelial Cells Rare /hpf (Few)
--- NOTE | 2022-01-05 04:08 | NUR ---
SHIFT SUMMARY: ANGELINA IS A&OX4. VSS, NO ACUTE EVENTS OVERNIGHT. HE WAS MADE NPO AT MIDNIGHT. CHRONIC DE [place] CHANGED AND URINE SAMPLE SENT, INCONTINENT OF BOWEL AND PT STATES UNAWARE OF WHEN BOWEL MOVEMENT HAPPENS. HE WAS TOLERATING PO INTAKE WELL PRIOR TO BEING MADE NPO. IV TO R AC PATENT, FLUIDS INFUSING PER ORDER. WILL NEED A COVID SWAB IF SCHEDULED FOR PROCEDURE AFTER PODIATRY CONSULT. HE IS PLEASANT AND COOPERATIVE, APPRECIATIVE OF CARE, USES THE CALL LIGHT APPROPRIATELY. 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 HE STATES THAT HE USES A WALKER AT [facility]ELINE, BUT IS WEAK AND HE HAS HAD A FALL RECENTLY AT HOME. HE HAS NOT BEEN IMPULSIVE THIS SHIFT. HE IS LYING IN BED WITH THE CALL LIGHT IN REACH. WILL REPORT TO DAY SHIFT RN.
[2022-01-05 10:30] LABS: C DIFFICILE DNA NEGATIVE (Negative)
[2022-01-05 10:52] LABS: SARS-Cov-2 (COVID-19) Antigen Negative (NEGATIVE)
--- NOTE | 2022-01-05 15:06 | NUR ---
PT TAKEN TO REVASCULAR PROCEDURE. PT BELONGINGS PACKED UP AND COCO THRASHER NOTIFIED OF PT GOING TO PROCEDURE AND TX TO PCU POST SURGERY.
--- NOTE | 2022-01-05 16:35 | NUR ---
REPORT GIVEN TO VICTORINO BARNARD IN PCU. BELONGINGS INCLUDING INSULIN PENS TRANSPORTED TO [facility] [id number].
--- NOTE | 2022-01-05 18:38 | NUR ---
SHIFT SUMMARY PT ARRIVED TO PCU AT APPROX. 1700, AKIL JAMES SETTLED PT INTO ROOM. PT IS ALERT AND ORIENTED BUT HAS BEEN SLEEPING SINCE ARRIVAL, HE WAKES EASILY TO VERBAL STIMULI AND ANSWERS QUESTIONS APPROPRIATELY. LEFT GRION SITE IS COVERED WITH CHG DRESSING WITH NO APPARENT SIGNS OF BLEEDING, SITE IS SOFT W/ NO APPARENT HEMATOMA. R 3RD TOE HAS BLACK DIABETIC ULCER THAT IS OPEN TO AIR AND APPEARS DRY/CLEAN, LEFT 3RD AND 4TH TOE ALSO HAS DIABETIC ULCER AND IS OPEN TO AIR. PICTURES ARE IN CHART. CHRONIC [place] CATHETER IS IN PLACE AND DRAINING TO GRAVITY, PER MEDICAL FLOOR RN REPORT, CATHETER WAS CHANGED LAST NIGHT. IV IN R AC IS INFUSING KVO. PT DENIED FEELINGS OF CHEST PAIN/PRESSURE, FEELINGS OF DIZZINESS, AND FEELINGS OF NAUSEA/VOMITTING. THIS NURSE UPDATED GOLDEN THRASHER AT APPROX 1900. NO OTHER ACUTE CHANGES NOTED. REPORT GIVEN TO OG BARNARD.
[2022-01-05 19:11] LABS: Anti-Xa UFH, PHA Monitoring 0.93 IU/mL; International Normalized Ratio 1.14; Prothrombin Time Results 11.9 Sec (9.7-11.5)
--- NOTE | 2022-01-05 21:53 | NUR ---
CARE ASSUMPTION: RECEIVED REPORT FROM AKIL GLEASON. PATIENT LAYING FLAT, ASSESSED GROIN SITE AND INFECTED TOE WITH OFFGOING RN. GROIN SITE WNL. PATIENT PLEASANT AND COOPERATIVE. VERIFIED FOOD ORDER. PATIENT FINISHED DINNER TRAY. BED LOW WITH CALL LIGHT IN REACH.
--- NOTE | 2022-01-06 04:24 | NUR ---
SHIFT SUMMARY: PATIENT VS WNL, MAINTAIN O2 SATS >92% WITH EXCEPTION OF APNEIC MOMENTS WHILE SLEEPING WHICH HE QUICKLY RECOVERS FROM. GROIN SITE WNL. DENIES PAIN, SOB, OR DISCOMFORT. RIGHT FOOT TOE RED, WARM, AND BLACKENED. LEFT FOOT TOES ALSO APPEAR INFLAMED, THOUGH LESS SO THAN RIGHT. HEPARIN RUNNING PER EMAR, MEDICATED PER EMAR. BED LOW WITH CALL LIGHT IN REACH AND BED ALARM SET. WILL CONTINUE TO MONITOR AND REPORT TO ONCOMING RN.
[2022-01-06 13:27] LABS: Hematocrit 37.9 % (37.0-53.0); Hemoglobin 12.2 g/dL (13.5-17.5); Mean Platelet Volume 9.9 fL (9.1-12.4); Platelet Count 183 K/mm3 (150-400)
--- NOTE | 2022-01-06 17:52 | NUR ---
NO ACUTE EVENTS T/O THE SHIFT. SEE DOCUMENTED ASSESSMENT AND VS. MRI OF R FOOT COMPLETED. NO WORD FROM PODIATRY ABOUT POSSIBLE SX. PT WILL BE KEPT NPO P MN IN ANTICIPATION OF SX TOMORROW. HEPARIN GTT RUNNING T/O THE SHIFT. NO CHANGES IN PT CONDITION. CALL LIGHT IN REACH, PT ABLE TO USE APPROPRIATELY, WILL CONTINUE TO MONITOR AND GIVE REPORT TO NOC SHIFT RN.
[2022-01-06 20:02] LABS: Hematocrit 36.3 % (37.0-53.0); Hemoglobin 11.9 g/dL (13.5-17.5); Mean Platelet Volume 10.3 fL (9.1-12.4); Platelet Count 182 K/mm3 (150-400)
[2022-01-07 03:43] LABS: Hematocrit 36.8 % (37.0-53.0); Hemoglobin 11.9 g/dL (13.5-17.5); Mean Corpuscular HGB 29.6 pg (26.0-34.0); Mean Corpuscular HGB Conc 32.3 g/dL (31.5-36.5); Mean Corpuscular Volume 92 fL (80-100); Platelet Count 178 K/mm3 (150-400); RDW Coefficient Variation 12.3 % (11.7-14.2); RDW Standard Deviation 41.3 fL (35.1-46.3); Red Blood Cell Count 4.02 M/mm3 (4.30-5.90); White Blood Cell Count 7.77 K/mm3 (4.00-11.30)
[2022-01-07 04:02] LABS: Albumin, Blood 2.5 g/dL (3.4-5.0); Anion Gap 4 mmol/L (6-16); Blood Urea Nitrogen 35 mg/dL (8-24); Bun/Creatinine Ratio 17.8 (12.0-20.0); CO2, Blood 28 mmol/L (21-32); Calcium, Blood 8.3 mg/dL (8.5-10.1); Chloride, Blood 106 mmol/L (98-108); Creatinine, Blood 1.97 mg/dL (0.60-1.20); Glomerular Filtration Rate 36 (60-); Glucose, Blood 213 mg/dL (70-99); Potassium, Blood 4.1 mmol/L (3.5-5.5); Sodium, Blood 138 mmol/L (136-145)
--- NOTE | 2022-01-07 06:25 | NUR ---
Shift summary. Pt rested in bed throughout shift. Alert and oriented, on room air. Heparin titrated down from 18 units/kg/hr to 16 by pharmacy during shift. NS tko running at 10 ml/hr. VS stable throughout shift. See shift assessment for further details. Will continue to monitor and report off to dayshift RN.
--- NOTE | 2022-01-07 17:51 | NUR ---
ASSUMED CARE OF PT AT 0700 TODAY. PT HAS BEEN NPO ALL DAY FOR PROCEDURE. PT HAS HAD NO COMPLAINTS OF PAIN. HEPARIN GTT RUNNING CONTINUOUSLY. REPORT GIVEN TO VANE BARNARD TO ASSUME CARE OF PT POST PROCEDURE [id number]. ALL BELONGINGS SENT WITH PT. PT TO PRE OP AT 1745.
--- NOTE | 2022-01-07 18:53 | NUR ---
HEPARIN IV PUMP AND TELEMETRY LABELED AND TAKEN TO ROOM 340 WHERE PT WILL TRANSFER TO POST PACU
--- NOTE | 2022-01-07 18:55 | NUR ---
01/07/22 8734 Bentley Sosa PT ON SCHEDULED ABX. 14 MIN TOURNIQUET NO SCD PER SURGEON NO ADDITIONAL WARMING PER ANESTHESIA.
[2022-01-08 03:20] LABS: Hematocrit 37.8 % (37.0-53.0); Hemoglobin 12.4 g/dL (13.5-17.5); Mean Corpuscular HGB 29.8 pg (26.0-34.0); Mean Corpuscular HGB Conc 32.8 g/dL (31.5-36.5); Mean Corpuscular Volume 91 fL (80-100); Platelet Count 168 K/mm3 (150-400); RDW Coefficient Variation 12.4 % (11.7-14.2); RDW Standard Deviation 41.1 fL (35.1-46.3); Red Blood Cell Count 4.16 M/mm3 (4.30-5.90); White Blood Cell Count 8.18 K/mm3 (4.00-11.30)
[2022-01-08 03:52] LABS: Albumin, Blood 2.5 g/dL (3.4-5.0); Anion Gap 8 mmol/L (6-16); Blood Urea Nitrogen 33 mg/dL (8-24); Bun/Creatinine Ratio 19.1 (12.0-20.0); CO2, Blood 24 mmol/L (21-32); Calcium, Blood 8.6 mg/dL (8.5-10.1); Chloride, Blood 107 mmol/L (98-108); Creatinine, Blood 1.73 mg/dL (0.60-1.20); Glomerular Filtration Rate 42 (60-); Glucose, Blood 412 mg/dL (70-99); Phosphorus, Blood 3.6 mg/dL (2.5-4.9); Potassium, Blood 4.5 mmol/L (3.5-5.5); Sodium, Blood 139 mmol/L (136-145)
--- NOTE | 2022-01-08 05:28 | NUR ---
SHIFT SUMMARY 71 YR M TRANSFER FROM U. DNR. PT CAME TO THIS UNIT POST OP AFTER AN AMPUTAION OF THE THIRD TOE ON THE RIGHT FOOT. POST OP VITALS WERE WITHIN NORMAL RANGE AND PT WAS A&O AND HAD NO C/O PAIN. HE WAS HUNGRY AND ATE A COUPLE OF SANDWHICHES WELL CHEESE AND CRACKERS AND PUDDING, AND THEN FELL ASLEEP AND SLEPT THE REST OF THE SHIFT. PER PHARMACY, HEAPRIN RATE WAS REDUCED FROM 15-13 UNITS/KG/HR.
--- NOTE | 2022-01-08 17:11 | NUR ---
DISCHARGE SUMMARY PATIENT DISCHARGED HOME WITH HOME HEALTH. DISCHARGE PAPERWORK REVIEWED WITH PATIENT AND ALL QUESTIONS ANSWERED. NO NEW PRESCRIPTIONS. IV AND TELE D/C'D. CHRONIC DE [place] TOR[place] PRESENT AT D/C. PATIENT AND ALL BELONGINGS TAKEN VIA WHEELCHAIR TO PERSONAL VEHICLE AND NIECE TOOK PATIENT HOME.
== END 2022-01-08 16:43 | disposition home health service (06) | DRG 253 ==
LOC: ER 12:07 → MEDS 16:15 → PCU 01-05 16:09 → MEDS 01-07 19:43
PROVIDERS: Internal Medicine; Nurse Practitioner Acute Care; Podiatrist Foot & Ankle Surgery; Radiology Diagnostic Radiology; Student in an Organized Health Care Education/Training Program; ADMIT Internal Medicine
PROC: 047K3Z1 Dilation of Right Femoral Artery using Drug-Coated Balloon, Percutaneous Approach (ICD-10-PCS; 2022-01-05)
PROC: 047M3ZZ Dilation of Right Popliteal Artery, Percutaneous Approach (ICD-10-PCS; 2022-01-05)
PROC: 047P3ZZ Dilation of Right Anterior Tibial Artery, Percutaneous Approach (ICD-10-PCS; 2022-01-05)
PROC: 047T3ZZ Dilation of Right Peroneal Artery, Percutaneous Approach (ICD-10-PCS; 2022-01-05)
PROC: B41DYZZ Fluoroscopy of Aorta and Bilateral Lower Extremity Arteries using Other Contrast (ICD-10-PCS; 2022-01-05)
PROC: 0QBQ0ZX Excision of Right Toe Phalanx, Open Approach, Diagnostic (ICD-10-PCS; 2022-01-07)
PROC: 0Y6T0Z1 Detachment at Right 3rd Toe, High, Open Approach (ICD-10-PCS; principal; 2022-01-07 17:30)
DX: E11.52 Type 2 diabetes mellitus with diabetic peripheral angiopathy with gangrene (principal); K52.1 Toxic gastroenteritis and colitis; M86.8X7 Other osteomyelitis, ankle and foot; E11.69 Type 2 diabetes mellitus with other specified complication; L03.031 Cellulitis of right toe; Z66 Do not resuscitate; E11.40 Type 2 diabetes mellitus with diabetic neuropathy, unspecified; T36.95XA Adverse effect of unspecified systemic antibiotic, initial encounter; I25.10 Atherosclerotic heart disease of native coronary artery without angina pectoris; Z20.822 Contact with and (suspected) exposure to COVID-19; N40.1 Benign prostatic hyperplasia with lower urinary tract symptoms; R33.8 Other retention of urine; Z96.0 Presence of urogenital implants; E78.5 Hyperlipidemia, unspecified; Z96.642 Presence of left artificial hip joint; E11.621 Type 2 diabetes mellitus with foot ulcer; L97.519 Non-pressure chronic ulcer of other part of right foot with unspecified severity; E11.22 Type 2 diabetes mellitus with diabetic chronic kidney disease; N18.30 Chronic kidney disease, stage 3 unspecified; I12.9 Hypertensive chronic kidney disease with stage 1 through stage 4 chronic kidney disease, or unspecified chronic kidney disease; Z89.422 Acquired absence of other left toe(s); Z79.2 Long term (current) use of antibiotics; Z79.899 Other long term (current) drug therapy; Z79.4 Long term (current) use of insulin; Z79.02 Long term (current) use of antithrombotics/antiplatelets; I25.2 Old myocardial infarction; Z95.5 Presence of coronary angioplasty implant and graft; Z95.820 Peripheral vascular angioplasty status with implants and grafts; Z87.2 Personal history of diseases of the skin and subcutaneous tissue; Z98.890 Other specified postprocedural states; Z86.73 Personal history of transient ischemic attack (TIA), and cerebral infarction without residual deficits
CPT/HCPCS: 36415; 37224; 37228; 37232; 73620; 73720; 75625; 75716; 75774; 80048; 80069; 81001; 82947; 85014; 85018; 85025; 85027; 85049; 85347; 85520; 85610; 85651; 85730; 86140; 87086; 87426; 87493; 88305; 88311; 93005; 93010; 93926; 96365; 96367; 97116; 97162; 99152; 99153; 99285-25; A9270; A9579; C1725; C1760; C1769; C1887; C1894; C2623; C9803; J0692; J1100; J1644; J1815; J2001; J2250; J2370; J2405; J2543; J2704; J3010; J3370; J7030; J7040; J7060; Q9967

== ENCOUNTER 2022-02-22 09:31 | Emergency (ER) | payer MEDICARE ==
[~2022-02-22] VITALS: Ht 182.9 cm; Wt 81.7 kg
[2022-02-22 10:33] LABS: BASOPHILS ABSOLUTE AUTO 0.12 K/mm3 (0.00-0.23); BASOPHILS PERCENT AUTO 1 % (0-2); EOSINOPHILS ABSOLUTE AUTO 0.39 K/mm3 (0.00-0.68); EOSINOPHILS PERCENT AUTO 3 % (0-6); Hematocrit 38.4 % (37.0-53.0); Hemoglobin 12.2 g/dL (13.5-17.5); IMMATURE GRAN ABSOLUTE AUTO 0.04 K/mm3 (0.00-0.10); IMMATURE GRAN PERCENT AUTO 0 % (0-1); LYMPHOCYTES ABSOLUTE AUTO 1.72 K/mm3 (0.84-5.20); LYMPHOCYTES PERCENT AUTO 15 % (21-46); MONOCYTES ABSOLUTE AUTO 0.53 K/mm3 (0.16-1.47); MONOCYTES PERCENT AUTO 5 % (4-13); Mean Corpuscular HGB 29.7 pg (26.0-34.0); Mean Corpuscular HGB Conc 31.8 g/dL (31.5-36.5); Mean Corpuscular Volume 93 fL (80-100); Mean Platelet Volume 9.8 fL (9.1-12.4); NEUTROPHILS ABSOLUTE AUTO 8.65 K/mm3 (1.96-9.15); NEUTROPHILS PERCENT AUTO 76 % (41-73); Platelet Count 320 K/mm3 (150-400); RDW Standard Deviation 44.2 fL (35.1-46.3); Red Blood Cell Count 4.11 M/mm3 (4.30-5.90); White Blood Cell Count 11.45 K/mm3 (4.00-11.30)
[2022-02-22 10:52] LABS: Albumin, Blood 2.9 g/dL (3.4-5.0); Albumin/Globulin Ratio 0.6 (0.8-1.8); Bilirubin, Total 0.2 mg/dL (0.1-1.0); Bun/Creatinine Ratio 18.8 (12.0-20.0); Calcium, Blood 8.8 mg/dL (8.5-10.1); Creatinine, Blood 2.02 mg/dL (0.60-1.20); Globulin, Blood 4.6 g/dL (2.2-4.0); Potassium, Blood 4.9 mmol/L (3.5-5.5); Total Protein, Blood 7.5 g/dL (6.4-8.2)
== END 2022-02-22 16:56 | disposition home or self-care (01) ==
LOC: ER 09:31
PROVIDERS: Student in an Organized Health Care Education/Training Program
DX: T87.89 Other complications of amputation stump (principal); E11.9 Type 2 diabetes mellitus without complications; I25.2 Old myocardial infarction; I10 Essential (primary) hypertension; E78.5 Hyperlipidemia, unspecified; Y83.8 Other surgical procedures as the cause of abnormal reaction of the patient, or of later complication, without mention of misadventure at the time of the procedure; Z79.4 Long term (current) use of insulin; Z79.899 Other long term (current) drug therapy; Z86.73 Personal history of transient ischemic attack (TIA), and cerebral infarction without residual deficits; Z96.642 Presence of left artificial hip joint
CPT/HCPCS: 36415; 80053; 85025; 99283